=== PATIENT | female | born 1950 | race Caucasian/White ===

== ENCOUNTER → 2019-04-02 16:02 | Outpatient (BNVA) | payer MEDICARE, OTHER, SELFPAY | PROVIDERS: Family Provider Nurse Practitioner; PCP Nurse Practitioner; Visit Provider Nurse Practitioner | DX: J06.9 Acute upper respiratory infection, unspecified (principal); R50.9 Fever, unspecified | CPT/HCPCS: 87804 ==

== ENCOUNTER → 2019-07-09 08:51 | Outpatient (BNVA) | payer MEDICARE, OTHER, SELFPAY | PROVIDERS: Family Provider Nurse Practitioner; PCP Nurse Practitioner; Visit Provider Nurse Practitioner | DX: E55.9 Vitamin D deficiency, unspecified (principal); E78.5 Hyperlipidemia, unspecified; I10 Essential (primary) hypertension; F41.8 Other specified anxiety disorders | CPT/HCPCS: 80053; 80061; 81000; 82306; 82607; 83735; 84443; 85025 ==

== ENCOUNTER → 2020-01-18 08:03 | Outpatient (BNVA) | payer MEDICARE, OTHER, SELFPAY | PROVIDERS: Family Provider Nurse Practitioner; PCP Nurse Practitioner; Visit Provider Nurse Practitioner | DX: E78.2 Mixed hyperlipidemia (principal); E55.9 Vitamin D deficiency, unspecified; I10 Essential (primary) hypertension | CPT/HCPCS: 80053; 80061; 82306; 85025 ==

== ENCOUNTER → 2020-06-28 08:27 | Outpatient (BNVA) | payer MEDICARE, SELFPAY | PROVIDERS: Family Provider Nurse Practitioner; PCP Nurse Practitioner; Visit Provider Nurse Practitioner | DX: I10 Essential (primary) hypertension (principal); R91.1 Solitary pulmonary nodule; E78.2 Mixed hyperlipidemia | CPT/HCPCS: 80053; 80061; 84443; 85025 ==

== ENCOUNTER 2020-07-04 10:05 | Outpatient (CLI) | payer MEDICARE, SELFPAY ==
--- NOTE | 2020-07-04 10:30 | CT_ITS ---
WS: [id number] CT CHEST WITHOUT INTRAVENOUS CONTRAST HISTORY: R91.1 - Solitary pulmonary nodule TECHNIQUE: Contiguous 5 mm axial imaging performed on the thorax. Coronal and sagittal reformats are submitted. All CT scans at [facility] use at least one of these dose optimization techniq ues: automated exposure control; mA and/or kV adjustment per patient size (includes targeted exams wh ere dose is matched to clinical indication); or iterative reconstruction. CONTRAST: None DLP: 744.37 mGycm COMPARISON: 05/06/2019 and 04/20/2019 and 05/31/2018 Lungs and central airway: Hyperexpanded lungs. Stable 4 mm nodule at the RIGHT apex is slightly spicu lated. No increase in size over multiple years. No suspicious pulmonary nodules. No pneumonia. Pleura: Normal. No pleural effusion. Heart and pericardium: Normal size heart. No pericardial effusion. Heavy calcification along the mitr al annular valve plane. Moderate atherosclerosis [place] coronary arteries. Mediastinum and kaleb: Small mediastinal and hilar lymph nodes. Vessels: Normal size aortic and pulmonary artery. No coronary artery calcifications. Chest wall and lower neck: No soft tissue masses. Upper abdomen: Mild hepatic steatosis suspected within the liver. Small hiatal hernia. Osseous structures: No destructive process. CT/CT chest wo con [id number] IMPRESSION: 1. No new or suspicious nodules. Stable 4 mm nodule at the RIGHT apex over mul tiple years. The remaining opacifications have resolved. 2. Coronary artery calcifications and mitral annular calcification. 3. No adenopathy.
== END 2020-07-04 10:06 | disposition home or self-care (01) ==
PROVIDERS: PCP Nurse Practitioner; Visit Provider Nurse Practitioner
DX: R91.1 Solitary pulmonary nodule (principal); I25.10 Atherosclerotic heart disease of native coronary artery without angina pectoris
CPT/HCPCS: 71250

== ENCOUNTER → 2020-07-19 14:01 | Outpatient (BNVA) | payer MEDICARE, SELFPAY | PROVIDERS: PCP Nurse Practitioner; Visit Provider Podiatrist Foot & Ankle Surgery | DX: M20.11 Hallux valgus (acquired), right foot (principal); M77.31 Calcaneal spur, right foot | CPT/HCPCS: 73630 ==

== ENCOUNTER 2020-08-25 11:47 | Outpatient (CLI) | payer MEDICARE, SELFPAY ==
--- NOTE | 2020-08-25 11:55 | MM_ITS ---
WS: [id number] BILATERAL DIGITAL SCREENING MAMMOGRAPHY WITH CAD CLINICAL INFORMATION: SCREENING HISTORY: Screening mammogram. No current complaints. COMPARISON: June 18, 2018 TECHNIQUE: Bilateral CC and MLO views. FINDINGS: Scattered fibroglandular densities bilaterally. No suspicious focal mass, asymmetry, calcifications, or architectural distortion. No evidence of malignancy. A few punctate calcifications left breast sim ilar to previous. Secretory calcifications left breast. Vascular calcification. MM/[place] [id number] IMPRESSION: BI-RADS: 2-Benign FOLLOW UP: 1 Year Follow-up Recommend return to annual screening mammography.
== END 2020-08-25 11:48 | disposition home or self-care (01) ==
LOC: RADSHAW 11:54
PROVIDERS: PCP Nurse Practitioner; Visit Provider Nurse Practitioner
DX: Z12.31 Encounter for screening mammogram for malignant neoplasm of breast (principal)
CPT/HCPCS: 77067

== ENCOUNTER 2020-09-09 08:14 | Outpatient (CLI) | payer MEDICARE, SELFPAY ==
--- NOTE | 2020-09-09 08:30 | CT_ITS ---
WS: [id number] CT CALCIUM SCORE REASON FOR VISIT: I25.10 - Atherosclerotic heart disease of elem coronary...; Coronary artery dise ase risk assessment COMPARISON: None TECHNIQUE: Noncontrast coronary CT in combination with quantitative analysis performed on a separate workstation were used to determine CACS (Agatston score) TOTAL EXAM DOSE: 130.14 mGy.cm ECG GATING: Prospective SCAN RANGE: Pulmonary artery bifurcation to Inferior aspect of heart COMPLICATIONS: None FINDINGS: Technical Quality/Examination Quality: Good Limitaiton: None OVERALL SCORES Total calcium score: 688 Total volume score: 230 mm3 Percentile: 90 % ARTERY SCORES Left main coronary artery: 0 Left anterior descending artery: 624 Left circumflex artery: 64 Right coronary artery: 0 OTHER FINDINGS: Mediastinum: A few prominent pretracheal and peribronchial lymph nodes likely reactive largest measur ing 11 mm. Tiny right eccentric pericardial effusion. Thoracic aorta: Slightly ectatic ascending thoracic aorta measuring 3.2 CM. Lungs: Normal. Upper Abdomen: Small esophageal hiatal hernia. Adrenal glands are normal. MINIMAL: 1-10 MILD: 11-100 MODERATE: 101-400 SEVERE:>400 CT/CT heart w calcium score [id number] IMPRESSION: Total calcium score 688 consistent with severe coronary artery dise ase in the 90th percentile for age and gender GRADING OF CORONARY ARTERY DISEASE (BASED ON TOTAL CALCIUM SCORE) NO EVIDENCE OF CAD: 0 calcium score
== END 2020-09-09 08:15 | disposition home or self-care (01) ==
PROVIDERS: PCP Nurse Practitioner; Visit Provider Internal Medicine Cardiovascular Disease
DX: I25.10 Atherosclerotic heart disease of native coronary artery without angina pectoris (principal)
CPT/HCPCS: 75571

== ENCOUNTER → 2020-09-29 09:27 | Outpatient (BNVA) | payer MEDICARE, SELFPAY | PROVIDERS: PCP Nurse Practitioner; Visit Provider Nurse Practitioner | DX: M19.032 Primary osteoarthritis, left wrist (principal); M25.532 Pain in left wrist | CPT/HCPCS: 73110; 73130 ==

== ENCOUNTER 2020-11-10 06:00 | Outpatient (RCR) | payer MEDICARE, SELFPAY | END 2020-11-10 23:59 | disposition home or self-care (01) | LOC: AOT 06:00 | PROVIDERS: PCP Nurse Practitioner; Referring Provider Nurse Practitioner; Visit Provider Nurse Practitioner | DX: M25.532 Pain in left wrist (principal) | CPT/HCPCS: 97110; 97166 ==

== ENCOUNTER 2020-11-11 06:00 | Outpatient (RCR) | payer MEDICARE, SELFPAY | END 2020-12-11 23:59 | disposition home or self-care (01) | LOC: AOT 06:00 | PROVIDERS: PCP Nurse Practitioner; Referring Provider Nurse Practitioner; Visit Provider Nurse Practitioner | DX: M25.532 Pain in left wrist (principal) | CPT/HCPCS: 97110; 97140 ==

== ENCOUNTER 2020-12-22 07:24 | Outpatient (CLI) | payer MEDICARE, SELFPAY ==
[2020-12-22 07:30] VITALS: BMI 32.2
--- NOTE | 2020-12-22 07:40 | ECG_ITS ---
[facility] Test Date: 2020-12-22 Pat Name: Harika Singletary Department: Room: Gender: Female Service Station Cashier: : 1950 Requested By: Cori Helm Order Number: [id number] Evi MD: Cori Helm M.D. Interpretive Statements NAME OF STUDY: EXERCISE SESTAMIBI STRESS TEST INDICATION: Abnormal EKG, dyspnea on exertion Baseline blood pressure of 159/92 mm Hg, heart rate of 80 beats per minute and oxygen saturation of 95%. EKG showed normal sinus rhythm, normal axis with normal ST-Ts. The patient exercised for 4 minutes 9 seconds on a standard Shayan protocol. Patient attained a maximum heart rate of 151 beats per minute(100% of the maximum predicted heart rate) with a blood pressure at the peak exercise of 191/85 mm Hg and oxygen saturation of 90%. The EKG at the peak exercise revealed 1 to 1-1/[address] depression in inferolateral leads. Patient did not have any chest pain or any significant arrhythmis with the exercise During the recovery phase, there were no new changes. Blood pressure at the end of the recovery phase was 139/78 mm Hg with a heart rate of 99 beats per minute and oxygen saturation 98%. CONCLUSION: 1. Equivocal EKG response to treadmill exercise. 2. No exercise-induced chest pain or cardiac arrhythmia 3. Fair exercise tolerance, attained a maximum of 7 METs. Maximum VO2 of 24.5 mL/kg/min. 4. Baseline hypertension with normal response to exercise. 5. Perfusion scan will be documented separately. Electronically Signed On 12-25-2020 14:00:24 COMPUTER HARDWARE DEVELOPER by Cori Helm M.D. [id number]
--- NOTE | 2020-12-22 07:41 | NMCV_ITS ---
NM mati perf SPECT r/s* [id number] Harika Singletary Age: 70 Gender: F : 1950 Exam Date: 12/22/2020 08:56 Ordering Phys: Cori Helm MD ([email or web address]) Technologist: STEFANIE Locke Exam Location: [facility] Indications: ABNORMAL EKG, Dyspnea on exertion STRESS TEST Please see separate stress test [facility] for [facility] IMAGE PROTOCOL Rest/Stress 1 Exercise Day Radiopharmaceutical Dose (mCi) Administration Site Administered by Rest: Tc-99m 10.6 IV STEFANIE Locke Sestamibi Stress:Tc-99m 32.8 IV STEFANIE Vitale Sestamibi Rest: 22-Dec-2020 60 Discovery 630 Stress: 22-Dec-2020 15 Discovery 630 Radiopharmaceutical was injected at 93 % maximum heart rate. Images obtained in supine and prone position. SPECT RESULTS Technical Quality: Excellent Raw Data Analysis: Normal Image Corrections: No attenuation or motion correction applied Summed Stress Score: 0 Summed Rest Score: 0 Summed Difference Score: 0 PERFUSION FINDINGS SPECT images demonstrate homogeneous tracer distribution throughout the myocardium. FUNCTIONAL RESULTS (calculated via Gated SPECT) Stress Image LV EF (%): 89 Stress EDV (mL):53 TID: 1.04 Stress ESV (mL):6 FUNCTIONAL FINDINGS: The left ventricle is normal in size. Transient Ischemia Dilatation of 1. There is hyperdynamic left ventricular global systolic function. The left ventricular ejection fraction is hyperdynamic with a value of 89%. There is hyperdynamic left ventricular wall thickening with no regional wall motion abnormality. IMPRESSIONS 1. Myocardial perfusion imaging is normal. 2. There is hyperdynamic left ventricular global systolic function. 3. The left ventricular ejection fraction is hyperdynamic with a value of 89%. 4. No prior similar studies to compare. Cori Helm MD (Electronically Signed) Final Date: 22 December 2020 20:14 S
[2020-12-22 10:03] VITALS: BP 139/78; PULSE 99
== END 2020-12-22 07:25 | disposition home or self-care (01) ==
LOC: CDL 07:25
PROVIDERS: PCP Nurse Practitioner; Visit Provider Internal Medicine Cardiovascular Disease
DX: R94.31 Abnormal electrocardiogram [ECG] [EKG] (principal); R06.09 Other forms of dyspnea
CPT/HCPCS: 78452; 93017; A9500

== ENCOUNTER 2021-01-11 06:00 | Outpatient (RCR) | payer MEDICARE, SELFPAY | END 2021-02-10 23:59 | disposition home or self-care (01) | LOC: AOT 06:00 | PROVIDERS: PCP Nurse Practitioner; Referring Provider Nurse Practitioner; Visit Provider Nurse Practitioner | DX: M25.532 Pain in left wrist (principal) | CPT/HCPCS: 97110; 97140; 97168 ==

== ENCOUNTER → 2021-01-26 08:03 | Outpatient (BNVA) | payer MEDICARE, SELFPAY | PROVIDERS: PCP Nurse Practitioner; Visit Provider Nurse Practitioner | DX: I10 Essential (primary) hypertension (principal) | CPT/HCPCS: 80053; 80061; 84443; 85025 ==

== ENCOUNTER → 2021-09-06 08:04 | Outpatient (BNVA) | payer MEDICARE, SELFPAY | PROVIDERS: PCP Nurse Practitioner; Visit Provider Nurse Practitioner | DX: F41.8 Other specified anxiety disorders (principal); I10 Essential (primary) hypertension; E55.9 Vitamin D deficiency, unspecified | CPT/HCPCS: 80053; 80061; 82306; 82607; 84443 ==

== ENCOUNTER → 2021-12-28 10:11 | Outpatient (BNVA) | payer MEDICARE, SELFPAY | PROVIDERS: PCP Nurse Practitioner; Visit Provider Nurse Practitioner | DX: K12.2 Cellulitis and abscess of mouth (principal); I10 Essential (primary) hypertension | CPT/HCPCS: 80053; 85025 ==

== ENCOUNTER → 2022-03-01 08:34 | Outpatient (BNVA) | payer MEDICARE, SELFPAY | PROVIDERS: PCP Nurse Practitioner; Visit Provider Nurse Practitioner | DX: E78.2 Mixed hyperlipidemia (principal); I10 Essential (primary) hypertension | CPT/HCPCS: 80053; 80061; 81000; 84443 ==

== ENCOUNTER 2022-04-16 08:00 | Outpatient (CLI) | payer MEDICARE, SELFPAY ==
--- NOTE | 2022-04-16 08:09 | CT_ITS ---
WS: [id number] CT HEAD TECHNIQUE: Noncontrast CT of the head obtained from the skullbase to the vertex. CLINICAL INFORMATION: BRAIN ASSESSMENT COMPARISON: May 05, 2010 DLP: 1041.[address] scans at [facility] use at least one of these dose optimization techniques: automated e xposure control; mA and/or kV adjustment per patient size (includes targeted exams where dose is matc hed to clinical indication); or iterative reconstruction. FINDINGS: No evidence of intracranial hemorrhage or mass effect. Ventricular system and basal cisterns are velazquez nt. Mild parenchymal volume loss. No extra-axial fluid collections. No evidence of mass or mass effe ct. Normal loo-white differentiation. Small amount of fluid RIGHT maxillary sinus. Mastoid air cells well aerated. CT/CT head wo con* [id number] IMPRESSION: 1. No evidence of intracranial hemorrhage or mass effect. 2. Mild parenchymal volume loss. 3. Partially visualized RIGHT maxillary sinusitis. 4. No acute intracranial findings.
--- NOTE | 2022-04-16 08:30 | CT_ITS ---
WS: [id number] CT CHEST WITHOUT INTRAVENOUS CONTRAST HISTORY: R91.1 - Solitary pulmonary nodule TECHNIQUE: Contiguous 5 mm axial imaging performed on the thorax. Coronal and sagittal reformats are submitted. [facility] use at least one of these dose optimization techniques: automated exposure control; mA and/or kV adjustment per patient size (includes targeted exams where dose is matched to clinical indication); or iterative reconstruction. CONTRAST: None DLP: 553.47 mGy.cm COMPARISON: 07/04/2020 Lungs and central airway: No change in the 4 mm pulmonary nodule at the RIGHT apex over multiple prio r years. No new mass, nodule or pneumonia. Pleura: Normal. No pleural effusion. Heart and pericardium: Heavy mitral annular calcification. Heart size is normal. There is dense calci fication in the [place] coronary arteries. Mediastinum and kaleb: No mediastinum or hilar adenopathy. Vessels: Normal size aortic and pulmonary artery. No coronary artery calcifications. Chest wall and lower neck: No soft tissue masses. Upper abdomen: Hyperdense LEFT renal nodule measuring 9 mm. Nodule is hyperdense as compared to the s tudy from 2018. Probably representing hemorrhage or increased protein content within a cyst. 5 mm cys t in the central spleen. No adrenal mass. Osseous structures: No destructive process. CT/CT chest wo con [id number] IMPRESSION: 1. Long-term stability RIGHT apical 4 mm lung nodule. No additional follow-up necessary. 2. No new mass or nodule. 3. Extensive coronary artery calcifications.
== END 2022-04-16 08:01 | disposition home or self-care (01) ==
PROVIDERS: PCP Nurse Practitioner; Visit Provider Nurse Practitioner
DX: R51.9 Headache, unspecified (principal); R91.1 Solitary pulmonary nodule; J32.9 Chronic sinusitis, unspecified
CPT/HCPCS: 70450; 71250

== ENCOUNTER → 2022-04-20 10:57 | Outpatient (BNVA) | payer MEDICARE, SELFPAY | PROVIDERS: PCP Nurse Practitioner; Visit Provider Nurse Practitioner | DX: R07.9 Chest pain, unspecified (principal); I48.91 Unspecified atrial fibrillation | CPT/HCPCS: 87426 ==

== ENCOUNTER 2022-04-21 00:22 | Observation (INO) | payer MEDICARE, SELFPAY ==
[2022-04-21] VITALS (12 sets, daily range): BP systolic 114–160; BP diastolic 68–95; PULSE 60–87; RESP 16–25; TEMP 36.1–37.3; O2SAT 91–97; BMI 32.5
--- NOTE | 2022-04-21 00:25 | XRR_ITS ---
PROCEDURE INFORMATION: Exam: XR Chest Exam date and time: 04/21/2022 12:43 AM Age: 72 years old Clinical indication: Pain; Chest pressure; Additional info: Cp TECHNIQUE: Imaging protocol: Radiologic exam of the chest. Views: 1 view. COMPARISON: CT chest con [id number] 04/16/2022 8:27 AM FINDINGS: Lungs: Minimal bibasilar atelectasis left greater than right. No lobar consolidation. Pleural spaces: No significant costophrenic angle blunting. No pneumothorax. Heart/Mediastinum: Heart size is normal. Bones/joints: No acute osseous abnormality. XR/XR chest 1V portable [id number] IMPRESSION: Minimal bibasilar atelectasis left greater than right.
--- NOTE | 2022-04-21 00:32 | ED_ITS ---
HPI - Syncope General: Chief Complaint: Syncope Stated Complaint: NEAR SYNCOPE Time Seen by Provider: 04/21/22 00:25 Source: patient and EMS Mode of arrival: EMS Limitations: no limitations History of Present Illness: 72-year-old female who states she is feeling chest pain earlier today she had went into the clinic was seen was told she had A-fib I reviewed her EKG from the clinic and it was not A-fib she was started on metoprolol and she did take a dose of the metoprolol she was started on Eliquis as well but she never took any of the Eliquis she states tonight she had felt lightheaded and almost passed out. Now sitting she feels improved she denies any pain reviewing the rhythm strips of EMS she appears to have a second-degree Mobitz type II block. Associated symptoms: Reports chest pain; Deny abdominal pain, fever(s), headache(s) or nausea Review of Systems Const: Denies: fever(s), chills, body aches or change in appetite Eyes: Denies: blurry vision or eye discomfort ENMT: Denies: throat pain or dental pain Card: Reports: chest pain and pre-syncope Resp: Denies: dyspnea GI: Denies: abdominal pain, nausea, vomiting or diarrhea : Denies: dysuria Musc: Denies: neck pain or back pain Skin/Breast: Denies: rash Neuro: Denies: headache(s) Psych: Denies: depression Lito/Lymph: Denies: easy bruising All/Imm: Denies: urticaria PFSH ED PFSH: Medical History Body mass index (BMI) of 33.0-33.9 in adult DDD (degenerative disc disease) Essential (primary) hypertension History of food anaphylaxis Shell fish Mixed hyperlipidemia RADHA on CPAP Situational anxiety Vitamin D deficiency Surgical History History of cataract surgery History of hysterectomy Family History Other Cancer Hypertension Social History Smoking and tobacco status: former smoker Second hand smoke exposure: No Smoking risk assessment/counseling performed?: No Alcohol intake: current Alcohol intake frequency: holidays/special occasions only Alcohol type: wine Desire information about alcohol rehabilitation?: No Counseling given: No Desire information about substance/drug rehabilitation?: No Counseling given: No Adopted: No Caregiver/support person: No Lives independently: Yes Household members: none Housing: House Marital status: Single Current occupational status: retired Current gender identity: Female Physical Exam Const: COMMON NORMALS: patient oriented x3 HENMT: COMMON NORMALS: normocephalic and atraumatic HEAD & SCALP: normocephalic and atraumatic Eye: COMMON NORMALS: Equal, round and reactive pupils present and EOMs intact bilaterally PUPIL: Yes Equal, round and reactive pupils present Neck/C-Spine: COMMON NORMALS: full ROM and supple Chest: COMMONS NORMALS: normal inspection of the chest and normal palpation of entire chest wall Resp: COMMON NORMALS: normal respiratory effort, No retractions, No use of accessory muscles and clear to auscultation bilaterally AUSCULTATION: clear to auscultation bilaterally Cardio: COMMON NORMALS: regular rate, regular rhythm and No murmurs present (Cardio) RATE: regular rate RHYTHM: regular rhythm GI: COMMON NORMALS: Normal to inspection, nondistended, normoactive bowel sounds present, Soft to palpation, non-tender and no masses PALPATION: Yes Soft to palpation Extremity: COMMON NORMALS: normal to inspection and full ROM Neuro: COMMON NORMALS: patient oriented x3, moves all extremities and no focal motor deficits Psych: COMMON NORMALS: mental status grossly normal, Normal thought process present and cooperative THOUGHT PROCESS: Normal thought process present Skin: COMMON NORMALS: no rashes or lesions noted and no wounds GENERAL SKIN EXAM: no rashes or lesions noted Course Vital Signs: Vital signs: Vital Signs Temperature 97.8 F 04/21/22 00:28 Pulse Rate 85 04/21/22 01:28 Respiratory Rate 18 04/21/22 01:28 Blood Pressure 138/95 04/21/22 01:28 Pulse Oximetry 97 04/21/22 01:28 Oxygen Delivery Me thod 04/21/22 01:28 MDM - Syncope Medical Decision Making Patient presents here with a near syncopal event on her EKG here and appears to be a first-degree but when you want her rhythm strip and rhythm strips with EMS she is dropping beats frequently consistent with a second-degree type II block. I spoke to the hospitalist along with forestry faculty member and will admit at this time. Lab Data 04/21/22 00:50 04/21/22 00:50 Laboratory Results WBC 9.6 10^3/uL (4.0-10.0) 04/21/22 00:50 RBC 4.67 10^6/uL (4.1-5.3) 04/21/22 00:50 Hgb 13.4 g/dL (11.5-15.3) 04/21/22 00:50 Hct 41.6 % (37.0-47.0) 04/21/22 00:50 MCV 89.1 fl (81-99) 04/21/22 00:50 MCH 28.7 pg (28.0-34.0) 04/21/22 00:50 MCHC 32.2 g/dL (30.0-36.0) 04/21/22 00:50 RDW 13.3 % (12.1-15.1) 04/21/22 00:50 Plt Count 338 10^3/cmm (130-400) 04/21/22 00:50 MPV 10.2 fL (7.4-10.4) 04/21/22 00:50 Neut % (Auto) 73.8 % 04/21/22 00:50 Lymph % (Auto) 17.4 % 04/21/22 00:50 Glades % (Auto) 6.7 % 04/21/22 00:50 Eos % (Auto) 1.6 % 04/21/22 00:50 Baso % (Auto) 0.3 % 04/21/22 00:50 Neut # (Auto) 7.10 10^3/uL (1.8-7.7) 04/21/22 00:50 Lymph # (Auto) 1.7 10^3/uL (0.8-4.8) 04/21/22 00:50 Glades # (Auto) 0.6 10^3/uL (0.2-0.9) 04/21/22 00:50 Eos # (Auto) 0.2 10^3/uL (0.0-0.8) 04/21/22 00:50 Baso # (Auto) 0.0 10^3/uL (0.0-0.1) 04/21/22 00:50 Nucleated RBC % (auto) 0 % 04/21/22 00:50 Nucleated RBCs # 0.0 /100WBC 04/21/22 00:50 Sodium 141 mmol/L (136-145) 04/21/22 00:50 Potassium 3.9 mmol/L (3.5-5.1) 04/21/22 00:50 Chloride 102 mmol/L (98-107) 04/21/22 00:50 Carbon Dioxide 26 mmol/L (22-29) 04/21/22 00:50 Anion Gap 16.9 (5-19) 04/21/22 00:50 BUN 12 mg/dL (8-23) 04/21/22 00:50 Creatinine 0.6 mg/dL (0.5-0.9) 04/21/22 00:50 GFR Calculation Not Reportable 04/21/22 00:50 Glucose 128 mg/dL (65-115) H 04/21/22 00:50 Calculated Osmolality 293 mOsm/kg (285-295) 04/21/22 00:50 Calcium 9.5 mg/dL (8.5-10.5) 04/21/22 00:50 Total Bilirubin 0.4 mg/dL (0.15-1.2) 04/21/22 00:50 AST 14 U/L (0-32) 04/21/22 00:50 ALT 16 U/L (0-33) 04/21/22 00:50 Alkaline Phosphatase 67 U/L (35-105) 04/21/22 00:50 Troponin T Baseline 7 ng/L (0-10) 04/21/22 00:50 Total Protein 6.8 g/dL (6.6-8.7) 04/21/22 00:50 Albumin 4.1 g/dL (3.5-5.2) 04/21/22 00:50 Globulin 2.7 g/dL (1.3-4.6) 04/21/22 00:50 Discharge Plan Discharge Patient Disposition: Admitted As Inpatient Clinical Impression: Syncope Condition: Stable Prescriptions: No Action (DME) CPAP auto titration See Rx Instructions .ROUTE .MEDSUPPLY Qty: 1 0RF Rx Instructions: auto titration up to 14 pressure For 99 months cholecalciferol (vitamin D3) PO ascorbate calcium (vitamin C) PO Endoca CBD topical diazepam 2 mg tablet 2 mg PO .HS PRN (Reason: anxiety) Qty: 30 0RF epinephrine [EpiPen 2-Kyrie] 0.3 mg/0.3 mL auto-injector 0.3 mg IM ONCE Qty: 2 2RF Rx Instructions: as a single dose rosuvastatin 10 mg tablet 10 mg PO DAILY Qty: 30 5RF hydrochlorothiazide 25 mg tablet 25 mg PO DAILY Qty: 30 5RF metoprolol succinate [Toprol XL] 25 mg tablet extended release 24 hr 25 mg PO DAILY Qty: 30 1RF Xarelto 15 mg tablet 15 mg PO DAILY Qty: 30 0RF Rx Instructions: must administer with evening meal ondansetron HCl 4 mg tablet 4 mg PO Q8H PRN (Reason: nausea and vomiting) Qty: 7 0RF Referrals: Perfecto Silva FNP-C [Primary Care Provider] - Coding Level of Care Code ED Office Administration Instructor for Teri Wright
--- NOTE | 2022-04-21 00:38 | ECG_ITS ---
[facility] Test Date: 2022-04-21 Pat Name: Harika Singletary Department: Room: Gender: Female Lab Asst: : 1950 Requested By: Nahid Naranjo Order Number: [id number] Evi MD: Gladys Carranza M.D. Measurements Intervals Sabin Rate: 89 P: 49 WV: 269 QRS: 44 QRSD: 81 T: 52 QT: 366 QTc: 447 Interpretive Statements SINUS RHYTHM WITH FIRST DEGREE AV BLOCK LOW QRS VOLTAGE IN PRECORDIAL LEADS [QRS DEFLECTION < 1.0 mV IN CHEST LEADS] No previous ECG available for comparison Electronically Signed On 04-22-2022 19:36:06 CDT by Gladys Carranza M.D. [id number]
[2022-04-21 01:01] LABS: Basophils % 0.3 %; Eosinophils # 0.2 10^3/uL (0.0-0.8); Eosinophils % 1.6 %; Hematocrit 41.6 % (37.0-47.0); Hemoglobin 13.4 g/dL (11.5-15.3); Lymphocytes # 1.7 10^3/uL (0.8-4.8); Lymphocytes % 17.4 %; Mean Corpuscular HGB Conc 32.2 g/dL (30.0-36.0); Mean Corpuscular Hemoglobin 28.7 pg (28.0-34.0); Mean Corpuscular Volume 89.1 fl (81-99); Mean Platelet Volume 10.2 fL (7.4-10.4); Monocytes # 0.6 10^3/uL (0.2-0.9); Monocytes % 6.7 %; Neutrophils % 73.8 %; Nucleated Red Blood Cells % 0 %; Platelet Count 338 10^3/cmm (130-400); Red Blood Count 4.67 10^6/uL (4.1-5.3); Red Cell Distribution Width 13.3 % (12.1-15.1); White Blood Count 9.6 10^3/uL (4.0-10.0)
[2022-04-21 01:29] LABS: Troponin(5th) Baseline 7 ng/L (0-10)
[2022-04-21 01:31] LABS: Alanine Aminotransferase 16 U/L (0-33); Albumin Level 4.1 g/dL (3.5-5.2); Alkaline Phosphatase 67 U/L (35-105); Anion Gap 16.9 (5-19); Aspartate Amino Transferase 14 U/L (0-32); Blood Urea Nitrogen 12 mg/dL (8-23); Calcium 9.5 mg/dL (8.5-10.5); Carbon Dioxide 26 mmol/L (22-29); Chloride 102 mmol/L (98-107); Globulin 2.7 g/dL (1.3-4.6); Glucose 128 mg/dL (65-115); Osmolality Calculated 293 mOsm/kg (285-295); Potassium 3.9 mmol/L (3.5-5.1); Sodium 141 mmol/L (136-145); Total Bilirubin 0.4 mg/dL (0.15-1.2); Total Protein 6.8 g/dL (6.6-8.7)
--- NOTE | 2022-04-21 02:25 | ECG_ITS ---
[facility] Test Date: 2022-04-21 Pat Name: Harika Singletary Department: Room: 111 Gender: Female Systems Consultant: : 1950 Requested By: Nahid Naranjo Order Number: [id number] Evi MD: Gladys Carranza M.D. Measurements Intervals [place] Rate: 73 P: 25 UT: 256 QRS: 45 QRSD: 85 T: 31 QT: 415 QTc: 459 Interpretive Statements Sinus rhythm with a first-degree AV block and blocked PACs LOW QRS VOLTAGE IN PRECORDIAL LEADS [QRS DEFLECTION < 1.0 mV IN CHEST LEADS] MINIMAL ST DEPRESSION [0.025+ mV ST DEPRESSION] Compared to ECG 04/21/2022 00:38:27 ST (T wave) deviation now present Electronically Signed On 04-22-2022 23:09:09 CDT by Gladys Carranza M.D. [id number]
--- NOTE | 2022-04-21 05:23 | P.HP_ITS ---
Providers/Chief Complaint Admitting Physician: Piedad Cho MD Primary Care Provider: Perfecto Silva, PACKER OPERATOR AUTOMATIC-C Chief Complaint: NEAR SYNCOPE History of Present Illness Harika Singletary is a 72 year old female with PMH HTN, HLD who visited with her PCP yesterday for chest pain. She was diagnosed with A fib and started on metoprolol and xarelto. She took metoprolol but not xarelto due to cost. She went to bed at 9: 30 pm but then woke up shortly afterwards feeling dizzy, weak and disoriented as if she would pass out. EMS was called, 2nd degree AV block was noted on rhythm strip and patient brought to ER. Here initial rhythm was with sinus arrhythmia however intermittent HB noted on telemetry. HEr chest apin has since resolved. No past h/o CAD. Stress test 2020 was WNL Review of Systems General: Reports: 10 or more systems reviewed and unremarkable except in HPI and below Const: Denies: fever(s), chills or body aches Eyes: Denies: change in vision, blurry vision or photophobia ENMT: Reports: hoarseness; Denies: throat pain, enlarged tonsils, odynophagia or nasal congestion Card: Denies: chest pain, palpitations, irregular heart rhythm, edema, swelling of feet/ankles, lightheadedness, pre-syncope, dyspnea on exertion or orthopnea Resp: Denies: dyspnea, productive cough, non-productive cough, wheezing, stridor, pain on inspiration, change in phlegm color, hemoptysis or chest congestion GI: Denies: abdominal pain, nausea, vomiting, hematemesis, coffee ground emesis, dysphagia, heartburn, diarrhea, constipation, GI cramping, change in stool character, hematochezia or melena : Denies: flank pain, difficulty voiding, dysuria, urinary frequency, urinary urgency, urinary hesitancy or hematuria Musc: Denies: neck pain, back pain, extremity pain, joint swelling, joint warmth or deformity Neuro: Denies: headache(s), numbness in extremities, weakness in extremities, sensory changes, difficulty walking, frequent falls, dizziness, vertigo, behavioral changes, Slurred speech present or seizure-like activity Psych: Denies: anxiety, depression, suicidal ideation or homicidal ideation Endo: Denies: polyuria, polydipsia, tired all the time, cold intolerance or hot flashes Lito/Lymph: Denies: easy bruising or easy bleeding Medications/Allergies Home Medications Medication Instructions Recorded Confirmed Last Taken Type CPAP auto titration #1 ea 07/26/20 04/20/22 Unknown Rx ascorbate calcium (vitamin C) PO 08/25/20 04/20/22 Unknown History cholecalciferol (vitamin D3) PO 08/25/20 04/20/22 Unknown History Endoca CBD topical 02/02/21 04/20/22 Unknown History diazepam 2 mg tablet 2 mg PO .HS PRN anxiety #30 tabs 09/01/21 04/20/22 Unknown Rx epinephrine 0.3 mg/0.3 mL 0.3 mg (0.3 mL) IM ONCE #2 ea 09/01/21 04/20/22 Unknown Rx injection, auto-injector (EpiPen 2-Kyrie) hydrochlorothiazide 25 mg tablet 25 mg PO DAILY #30 tabs 03/01/22 04/20/22 Unknown Rx rosuvastatin 10 mg tablet 10 mg PO DAILY #30 tabs 03/01/22 04/20/22 Unknown Rx ondansetron HCl 4 mg tablet 4 mg PO Q8H PRN nausea and 03/20/22 04/20/22 Unknown Rx vomiting #7 tabs metoprolol succinate 25 mg 25 mg PO DAILY #30 tabs 04/20/22 04/20/22 Unknown Rx tablet,extended release 24 hr (Toprol XL) rivaroxaban 15 mg tablet (Xarelto) 15 mg PO DAILY #30 tabs 04/20/22 04/20/22 Unknown Rx Allergies Allergy/AdvReac Type Severity Reaction Status Date / Time shellfish derived Allergy Severe Stop Verified 04/20/22 11:08 Breathing Sulfa (Sulfonamide Allergy Severe Rash Verified 04/20/22 11:08 Antibiotics) swelling cephalexin [From Keflex] Allergy Intermediate Rash Verified 04/20/22 11:08 ciprofloxacin [From Cipro] Allergy Intermediate Rash Verified 04/20/22 11:08 PFSH Acute PFSH: Medical History Body mass index (BMI) of 33.0-33.9 in adult DDD (degenerative disc disease) Essential (primary) hypertension History of food anaphylaxis Shell fish Mixed hyperlipidemia RADHA on CPAP Situational anxiety Vitamin D deficiency Surgical History History of cataract surgery History of hysterectomy Family History Other Cancer Hypertension Social History Smoking and tobacco status: former smoker Second hand smoke exposure: No Smoking risk assessment/counseling performed?: No Alcohol intake: current Alcohol intake frequency: holidays/special occasions only Alcohol type: wine Desire information about alcohol rehabilitation?: No Counseling given: No Desire information about substance/drug rehabilitation?: No Counseling given: No Adopted: No Caregiver/support person: No Lives independently: Yes Household members: none Housing: House Marital status: Single Current occupational status: retired Current gender identity: Female Vitals/I&O/Wt Last Vital Signs Temp 98.5 F 04/21/22 04:50 Pulse 79 04/21/22 04:50 Resp 25 H 04/21/22 04:50 BP 123/89 04/21/22 04:50 Pulse Ox 93 04/21/22 04:50 O2 Del Method 04/21/22 04:50 FiO2 21 04/21/22 04:30 Weight last 48 hrs Weight 86.183 kg Physical Exam Narrative: General: No acute distress, AO x3 HEENT: PERRLA, pupils bilaterally equal and reactive, pallors not present Chest: Normal vesicular breath sounds, no added sounds, equal good air entry bilaterally CVS: S1-S2 regular, no murmurs, no tachycardia, no gallops, no rubs Abdomen: Soft, nontender, no organomegaly, bowel sounds present Neuro: No focal deficits, no facial deformity, AO x3, power 5/5 in all limbs Data 04/21/22 00:50 04/21/22 00:50 A&P Assessment and plan (1) Near syncope: (2) Heart block: Plan Admit to CSU Telemetry monitoring electrolytes within range check troponin series and EKG series 12 lead EKG currently with sinus rhythm with first degree AV block however EMS lead with 2nd degree AV block, will monitor on tele No current chest pain or pre syncopal symptoms hold metoprolol cardioloy consulted from ER Attestations Medical Necessity Statement*: anticipate less than [facility] Coding Level of Care Code Acute Code for Chg Fwd Diagnoses Near syncope R55 Heart block I45.9
[2022-04-21 06:11] LABS: NT Pro B Type Natriuretic Pept 380 pg/mL (0-125)
--- NOTE | 2022-04-21 06:30 | ECG_ITS ---
[facility] Test Date: 2022-04-21 Pat Name: Harika Singletary Department: Room: 111 Gender: Female Supervisor Bindery: : 1950 Requested By: Nahid Naranjo Order Number: [id number] Evi MD: Gladys Carranza M.D. Measurements Intervals [place] Rate: 63 P: 54 TN: 263 QRS: 51 QRSD: 87 T: 58 QT: 430 QTc: 442 Interpretive Statements SINUS RHYTHM WITH FIRST DEGREE AV BLOCK WITH OCCASIONAL SUPRAVENTRICULAR PREMATURE COMPLEXES/blocked PACs LOW QRS VOLTAGE IN PRECORDIAL LEADS [QRS DEFLECTION < 1.0 mV IN CHEST LEADS] SEPTAL MYOCARDIAL INFARCTION , PROBABLY OLD [40+ ms Q WAVE IN V1/V2] Compared to ECG 04/21/2022 02:58:47 Myocardial infarct finding now present Sinus arrhythmia no longer present ST (T wave) deviation no longer present Electronically Signed On 04-22-2022 23:15:00 CDT by Gladys Carranza M.D. [email or web address]
[2022-04-21] MEDS: enoxaparin 40 mg/0.4 mL Syringe SUBCUT (06:36)
[2022-04-21 06:57] LABS: Troponin 5 6HR 8.61 ng/L (0-10)
[2022-04-21 07:28] LABS: Troponin 5 6HR Delta 1.61 ng/L (0-12)
--- NOTE | 2022-04-21 08:27 | P.CONIM_ITS ---
Providers/Reason For Consult Consulting Physician/Specialty*: ARLETTE Carranza MD/cardiology Reason for Consult*: Patient with a new onset of atrial fibrillation/symptomatic heart blocks Requesting Physician: Dr. Eli Attending Physician: Francisco Edmond MD Primary Care Provider: Perfecto Silva, SOURCE INSPECTOR-C History of Present Illness History of Present Illness Harika Singletary is a 72 year old female is admitted to the hospital with complaints of a new syncopal episode. She was found to be in second-degree heart block by the EMS. She was recently diagnosed with atrial fibrillation. Cardiology consult is requested for further cardiac evaluation recommendations. This patient apparently has been in her baseline state of health up until 10 days yesterday morning when she started having a dull aching type of pain in the lower substernal region. It lasted for several minutes. For this reason, she was evaluated in the [facility]. An EKG in the clinic revealed atrial fibrillation. Details of this is not available at this time. She was started on metoprolol succinate 25 mg daily and Xarelto. She took a half of the metoprolol succinate around 5 PM. She went to bed around 8:00 in the night. Around 10:30 PM she woke up with dizziness/uneasy feeling. She felt like she is in a different world. She was confused. Apparently she called her son around this time. The son called the 911. She was brought to the hospital emergency room for further evaluation management. Since hospital admission, she seems to be doing okay. The EKG in the hospital revealed a sinus rhythm with a first- degree AV block, blocked PACs and the occasional junctional escape beats. Patient has no previous history for any coronary artery disease, myocardial infarction, congestive heart failure or cardiac arrhythmia. Few years ago, she was found to have? Coronary calcification by CT of the chest. Apparently the CT scan was done to follow-up on a lung lesion. Subsequently she was seen by Dr. Hel[facility] and had a stress test. This was essentially unremarkable. She did not have any specific symptoms at that time. She is known to have dyslipidemia and essential benign hypertension. She has no significant family history for premature atherosclerotic heart diseas, cardiac arrhythmia or pacemaker. She smokes occasionally and also drinks socially. Review of Systems Narrative: CONSTITUTIONAL: No fever or chills. EYES: No blurring of vision or other visual disturbances lately. ENT: No hoarseness of voice, auditory disturbances or sore throat. CARDIOVASCULAR: As mentioned above. RESPIRATORY: No significant cough. GASTROINTESTINAL: No hematemesis or melena. GENITOURINARY: No dysuria or hematuria. INTEGUMENTARY: No skin rashes or history of skin cancer. NEURO: No transient ischemic attacks or amaurosis. PSYCHIATRIC: No history of psychosis or major depression. HEMATOLOGIC: No bleeding disorders or significant anemia. ENDOCRINE: No history of polyuria or polydipsia. MUSCULOSKELETAL: No recent joint pain or swelling. ALLERGY/IMMUNOLOGY: As mentioned above. Medications/Allergies Home Medications Medication Instructions Recorded Confirmed Last Taken Type CPAP auto titration #1 ea 07/26/20 04/20/22 Unknown Rx ascorbate calcium (vitamin C) PO 08/25/20 04/20/22 Unknown History cholecalciferol (vitamin D3) PO 08/25/20 04/20/22 Unknown History Endoca CBD topical 02/02/21 04/20/22 Unknown History diazepam 2 mg tablet 2 mg PO .HS PRN anxiety #30 tabs 09/01/21 04/20/22 Unknown Rx epinephrine 0.3 mg/0.3 mL 0.3 mg (0.3 mL) IM ONCE #2 ea 09/01/21 04/20/22 Unknown Rx injection, auto-injector (EpiPen 2-Kyrie) hydrochlorothiazide 25 mg tablet 25 mg PO DAILY #30 tabs 03/01/22 04/20/22 Unknown Rx rosuvastatin 10 mg tablet 10 mg PO DAILY #30 tabs 03/01/22 04/20/22 Unknown Rx ondansetron HCl 4 mg tablet 4 mg PO Q8H PRN nausea and 03/20/22 04/20/22 Unknown Rx vomiting #7 tabs metoprolol succinate 25 mg 25 mg PO DAILY #30 tabs 04/20/22 04/20/22 Unknown Rx tablet,extended release 24 hr (Toprol XL) rivaroxaban 15 mg tablet (Xarelto) 15 mg PO DAILY #30 tabs 04/20/22 04/20/22 U nknown Rx Allergies Allergy/AdvReac Type Severity Reaction Status Date / Time shellfish derived Allergy Severe Stop Verified 04/20/22 11:08 Breathing Sulfa (Sulfonamide Allergy Severe Rash Verified 04/20/22 11:08 Antibiotics) swelling cephalexin [From Keflex] Allergy Intermediate Rash Verified 04/20/22 11:08 ciprofloxacin [From Cipro] Allergy Intermediate Rash Verified 04/20/22 11:08 Current Medications Generic Name Dose Route Start Last Admin Trade Name Nancy PRN Reason Stop Dose Admin Enoxaparin Sodium 40 mg 04/21/22 05:30 04/21/22 06:36 Enoxaparin 40 Mg/0.4 Ml Syringe SUBCUT 40 mg Q24H PIYUSH Administration PFSH Acute PFSH: Medical History Body mass index (BMI) of 33.0-33.9 in adult DDD (degenerative disc disease) Essential (primary) hypertension History of food anaphylaxis Shell fish Mixed hyperlipidemia RADHA on CPAP Situational anxiety Vitamin D deficiency Surgical History History of cataract surgery History of hysterectomy Family History Other Cancer Hypertension Social History Smoking and tobacco status: former smoker Second hand smoke exposure: No Smoking risk assessment/counseling performed?: No Alcohol intake: current Alcohol intake frequency: holidays/special occasions only Alcohol type: wine Desire information about alcohol rehabilitation?: No Counseling given: No Desire information about substance/drug rehabilitation?: No Counseling given: No Adopted: No Caregiver/support person: No Lives independently: Yes Household members: none Housing: House Marital status: Single Current occupational status: retired Current gender identity: Female Vitals/I&O/Wt Last Vital Signs Temp 98 F 04/21/22 08:00 Pulse 67 04/21/22 08:00 Resp 18 04/21/22 08:00 BP 114/74 04/21/22 08:00 Pulse Ox 93 04/21/22 08:00 O2 Del Method 04/21/22 08:00 FiO2 21 04/21/22 04:30 04/20/22 04/21/22 04/21/22 22:59 06:59 14:59 Intake Total 0 / 0 Balance 0 / 0 Weight last 48 hrs Weight 190 lb Physical Exam Narrative: GENERAL: The patient is alert and oriented times three. Not in any acute distress. Overweight HEENT: No significant pallor, icterus or lymphadenopathy.Oral cavity: There are no mucous membrane lesions. NECK: Trachea appears to be central. No masses noted. No JVD or thyromegaly appreciated. RESPIRATORY: Chest is symmetrical. No intercostals muscle retraction or any accessory muscle activation. There is no chest wall tenderness. Breath sounds are heard bilaterally. No rales or rhonchi heard. No evidence of any consolidation. BREASTS: Deferred. HEART: The heart sounds are normal. No S3 or S4. No significant murmurs. No pericardial rub ABDOMEN: No vessel pulsations or distention. No tenderness. No organomegaly appreciated. Bowel sounds are normally heard. : Deferred. RECTAL: Deferred. LYMPHATIC: No lymphadenopathy noted in the neck. EXTREMITIES: No edema or cyanosis. No clubbing. MUSCULOSKELETAL: No acute joint deformities or swelling SKIN: There are no significant rashes or ecchymosis NEUROPSYCHIATRIC: The patient is alert and oriented x3. Appears to be in a good mood. No tremors or rigidity noted. Data 04/21/22 00:50 04/21/22 00:50 Other Labs: Laboratory Last Values WBC 9.6 10^3/uL (4.0-10.0) 04/21/22 00:50 RBC 4.67 10^6/uL (4.1-5.3) 04/21/22 00:50 Hgb 13.4 g/dL (11.5-15.3) 04/21/22 00:50 Hct 41.6 % (37.0-47.0) 04/21/22 00:50 MCV 89.1 fl (81-99) 04/21/22 00:50 MCH 28.7 pg (28.0-34.0) 04/21/22 00:50 MCHC 32.2 g/dL (30.0-36.0) 04/21/22 00:50 RDW 13.3 % (12.1-15.1) 04/21/22 00:50 Plt Count 338 10^3/cmm (130-400) 04/21/22 00:50 MPV 10.2 fL (7.4-10.4) 04/21/22 00:50 Neut % (Auto) 73.8 % 04/21/22 00:50 Lymph % (Auto) 17.4 % 04/21/22 00:50 [place]orne % (Auto) 6.7 % 04/21/22 00:50 Eos % (Auto) 1.6 % 04/21/22 00:50 Baso % (Auto) 0.3 % 04/21/22 00:50 Neut # (Auto) 7.10 10^3/uL (1.8-7.7) 04/21/22 00:50 Lymph # (Auto) 1.7 10^3/uL (0.8-4.8) 04/21/22 00:50 [place] # (Auto) 0.6 10^3/uL (0.2-0.9) 04/21/22 00:50 Eos # (Auto) 0.2 10^3/uL (0.0-0.8) 04/21/22 00:50 Baso # (Auto) 0.0 10^3/uL (0.0-0.1) 04/21/22 00:50 Nucleated RBC % (auto) 0 % 04/21/22 00:50 Nucleated RBCs # 0.0 /100WBC 04/21/22 00:50 Sodium 141 mmol/L (136-145) 04/21/22 00:50 Potassium 3.9 mmol/L (3.5-5.1) 04/21/22 00:50 Chloride 102 mmol/L (98-107) 04/21/22 00:50 Carbon Dioxide 26 mmol/L (22-29) 04/21/22 00:50 Anion Gap 16.9 (5-19) 04/21/22 00:50 BUN 12 mg/dL (8-23) 04/21/22 00:50 Creatinine 0.6 mg/dL (0.5-0.9) 04/21/22 00:50 GFR Calculation Not Reportable 04/21/22 00:50 Glucose 128 mg/dL (65-115) H 04/21/22 00:50 Calculated Osmolality 293 mOsm/kg (285-295) 04/21/22 00:50 Calcium 9.5 mg/dL (8.5-10.5) 04/21/22 00:50 Total Bilirubin 0.4 mg/dL (0.15-1.2) 04/21/22 00:50 AST 14 U/L (0-32) 04/21/22 00:50 ALT 16 U/L (0-33) 04/21/22 00:50 Alkaline Phosphatase 67 U/L (35-105) 04/21/22 00:50 Troponin T Baseline 7 ng/L (0-10) 04/21/22 00:50 Troponin T Hi Sens 6Hr 8.61 ng/L (0-10) 04/21/22 06:24 Troponin T Hi Sens 6Hr Delta 1.61 ng/L (0-12) 04/21/22 06:24 NT-Pro-B Natriuret Pep 380 pg/mL (0-125) H 04/21/22 05:33 Total Protein 6.8 g/dL (6.6-8.7) 04/21/22 00:50 Albumin 4.1 g/dL (3.5-5.2) 04/21/22 00:50 Globulin 2.7 g/dL (1.3-4.6) 04/21/22 00:50 A&P Assessment and plan (1) Near syncope: The etiology is not clear. The rhythm strip that is obtained from the ambulance shows that the patient is in first-degree heart block with frequent blocked PACs. Possibility of her having high degree AV block cannot be excluded. This needs to be closely monitored. (2) New onset atrial fibrillation: The EKG with atrial fibrillation also is not available. If the patient has intermittent atrial fibrillation, she may need an antiarrhythmic drug. I will try to get the EKG from the [facility]. After reviewing the EKG, further recommendations will be made. (3) RADHA on CPAP: Patient may be continued on the treatment. (4) Heart block: Currently the patient has first-degree AV block with frequent blocked PACs. (5) Mixed hyperlipidemia: May continue on the current management. (6) Coronary artery calcification of kiana artery: Continue the risk factor modification. (7) Essential (primary) hypertension: Currently she is normotensive. Continue on the current management. (8) Lung nodule < 6cm on CT: Follow-up evaluation as per the primary care. Plan The patient may be closely monitored on the telemetry. An echocardiogram would be helpful to evaluate the LV function and rule out any other pathology. Also will try to get the EKG from the [facility]. After reviewing the above, further recommendations will be made. Thank you for the opportunity to evaluate this patient make these recommendations Coding Level of Care Code 43720 Diagnoses Near syncope R55 New onset atrial fibrillation I48.91 RADHA on CPAP G47.33; Z99.89 Heart block I45.9 Mixed hyperlipidemia E78.2 Coronary artery calcification of kiana artery I25.10; I25.84 Essential (primary) hypertension I10 Lung nodule < 6cm on CT R91.1
[2022-04-21] MEDS: hydroCHLOROthiazide 25 mg Tablet PO (08:52)
--- NOTE | 2022-04-21 09:59 | USCV_ITS ---
Harika Singletary Age: 72 Gender: F : 1950 Exam Date: 04/21/2022 13:16 Ordering Phys: Gladys Carranza MD ([email or web address]) Technologist: ROSEANN Exam Location: [facility] [place] Indication: afib,heart block BP: / HR: 79 Rhythm: Sinus Technical Quality: Adequate MEASUREMENTS (Male / Female) Normal Values 2D ECHO LV Diastolic Diameter PLAX 5.3 cm 4.2 - 5.9 / 3.9 - 5.3 cm LV Systolic Diameter PLAX 3.9 cm IVS Diastolic Thickness 0.9 cm 0.6 - 1.0 / 0.6 - 0.9 cm IVS Systolic Thickness 1.2 cm LVPW Diastolic Thickness 0.8 cm 0.6 - 1.0 / 0.6 - 0.9 cm LVPW Systolic Thickness 1.2 cm LVOT Diameter 2.0 cm LV Ejection Fraction 2D Teich 51.1 % LV Ejection Fraction MOD 2C 58.2 % LV Ejection Fraction 2C AL 57.7 % LA Diameter 4.4 cm IVC Diameter 1.1 cm M-MODE Aortic Annulus Diameter 2.7 cm LA Ao Ratio MM 1.6 MV E Point Septal Separation 0.1 cm DOPPLER AV Peak Velocity 166.0 cm/s LVOT Peak Velocity 182.0 cm/s AV Area Cont Eq vti 3.4 cm squared AV Area Cont Eq pk 3.5 cm squared MV Area PHT 2.4 cm squared Mitral E to A Ratio 0.8 MV E' Velocity 74.5 cm/s Mitral E to MV E' Ratio 18.9 Mitral E to LV E' Lateral Ratio 19.7 Mitral E to LV E' Septal Ratio 18.4 TV Peak E Velocity 49.0 cm/s PV Peak Velocity 113.0 cm/s FINDINGS Left Ventricle Moderate left ventricular hypertrophy. No regional wall motion abnormalities. Normal left ventricular size and systolic function, EF 64 %. Grade I/IV diastolic dysfunction (abnormal relaxation filling pattern), normal to mildly elevated filling pressures. Right Ventricle The right ventricle is normal in size and function. Right Atrium The right atrium is normal in size. Left Atrium Mildly increased left atrial size. Atrial septal aneurysm measuring 2.3 x 1.8 cm Mitral Valve Thickened mitral valve. Moderate mitral annular calcification. Trace mitral valve regurgitation. Aortic Valve Thickened aortic valve. Tricuspid Valve No gross abnormalities noted Pulmonic Valve Trace pulmonary valve regurgitation. Pericardium Normal pericardium without effusion. Aorta Normal aortic annulus size. IVC Normal inferior vena cava. CONCLUSIONS Moderate left ventricular hypertrophy. No regional wall motion abnormalities. Normal left ventricular size and systolic function, EF 64 %. Grade I/IV diastolic dysfunction (abnormal relaxation filling pattern), normal to mildly elevated filling pressures. Mildly increased left atrial size. Atrial septal aneurysm measuring 2.3 x 1.8 cm. Thickened aortic valve. Trace pulmonary valve regurgitation. There is no pericardial effusion. There are no intracardiac masses. No similar previous studies are available for comparison Dr Gladys Carranza MD [facility] (Electronically Signed) Final Date: 21 April 2022 15:09 S
--- NOTE | 2022-04-21 14:14 | P.MISC_ITS ---
Miscellaneous Note Purpose of Documentation: Cross coverage note Note: Admitted humanities and languages professor. H&P and labs appreciated. On examination patient sitting up comfortably in bed. Family at bedside. Heart rate running in high 50s to low 60s with variable blocks versus first-degree heart block with blocked PACs. Patient states she is feeling a lot better. Patient is AOx3. Denies any difficulty breathing, chest pain, nausea and vomiting. Plan: Appreciate TSH. Check echocardiogram. Check magnesium Hold off on beta-liz. Continue to monitor telemetry. Appreciate cardiology recommendations. Possible plan to discharge in next 24 hours if patient remains hemodynamically stable without any symptoms of possible arrhythmia with heart block. Plan to discharge with event monitor. Care discussed in detail with patient and patient's daughter at bedside. All the questions were answered.
[2022-04-21 15:08] LABS: Iron 25 ug/dL (37-145); Percent Saturation 7.7 % (20-50); Thyroid Stimulating Hormone 1.28 uIU/mL (0.27-4.20); Total Iron Binding Capacity 323 mcg/dl; Unsaturated Iron Binding 298 ug/dL (112-347); Vitamin B12 366 pg/mL (232-1245)
[2022-04-21 16:05] LABS: Add Urine Microscopic? NO; Charge for UA Resulting for Rev
[2022-04-21 16:09] LABS: Bilirubin Urine Neg (Negative); Blood Urine Neg (Negative); Glucose Urine UA Norm (Normal); Ketones Urine Negative (Negative); Leukocyte Esterase Urine Negative (Negative); Nitrate Urine Negative (Negative); Protein Urine Neg (Negative); Specific Gravity, Urine 1.015 (1.005-1.030); Urine Appearance Clear (CLEAR); Urine Color Yellow (Yellow); Urobilinogen Urine 4 mg/dL (Negative); pH Urine 7 (5-7)
[2022-04-22] VITALS (7 sets, daily range): BP systolic 109–133; BP diastolic 64–76; PULSE 67–82; RESP 16–20; TEMP 36.6–37.1; O2SAT 90–95
[2022-04-22] MEDS: enoxaparin 40 mg/0.4 mL Syringe SUBCUT (04:40)
[2022-04-22 05:16] LABS: Basophils % 0.4 %; Eosinophils # 0.2 10^3/uL (0.0-0.8); Eosinophils % 3.3 %; Hematocrit 40.8 % (37.0-47.0); Hemoglobin 12.8 g/dL (11.5-15.3); Lymphocytes # 2.5 10^3/uL (0.8-4.8); Lymphocytes % 35.1 %; Mean Corpuscular HGB Conc 31.4 g/dL (30.0-36.0); Mean Corpuscular Hemoglobin 28.6 pg (28.0-34.0); Mean Corpuscular Volume 91.3 fl (81-99); Mean Platelet Volume 10.1 fL (7.4-10.4); Monocytes # 0.5 10^3/uL (0.2-0.9); Monocytes % 6.9 %; Neutrophils # 3.78 10^3/uL (1.8-7.7); Neutrophils % 54.2 %; Nucleated Red Blood Cells % 0 %; Platelet Count 319 10^3/cmm (130-400); Red Blood Count 4.47 10^6/uL (4.1-5.3); Red Cell Distribution Width 13.6 % (12.1-15.1)
[2022-04-22 05:35] LABS: Estmated Average Glucose 105; Hemoglobin A1C 5.3 % (4.0-6.0)
[2022-04-22 05:40] LABS: Alanine Aminotransferase 14 U/L (0-33); Albumin Level 3.5 g/dL (3.5-5.2); Alkaline Phosphatase 58 U/L (35-105); Anion Gap 15.1 (5-19); Aspartate Amino Transferase 15 U/L (0-32); Blood Urea Nitrogen 13 mg/dL (8-23); Calcium 8.8 mg/dL (8.5-10.5); Carbon Dioxide 26 mmol/L (22-29); Chloride 104 mmol/L (98-107); Chol HDL Ratio 3.29 mg/dL (0.0-4.40); Cholesterol 112 mg/dL (0-200); Glucose 115 mg/dL (65-115); HDL Cholesterol 34 mg/dL (60-100); LDL Cholesterol Calculated 64 mg/dL (50-129); Osmolality Calculated 293 mOsm/kg (285-295); Potassium 4.1 mmol/L (3.5-5.1); Sodium 141 mmol/L (136-145); Total Bilirubin 0.4 mg/dL (0.15-1.2); Total Protein 6.5 g/dL (6.6-8.7); Triglycerides 69 mg/dL (0-150); VLDL Cholestrol Calculation 14 mg/dL (0-30)
[2022-04-22 07:29] LABS: Folate Level 12.1 ng/mL (4.8-37.3)
[2022-04-22] MEDS: hydroCHLOROthiazide 25 mg Tablet PO (08:49)
--- NOTE | 2022-04-22 11:31 | P.DS_ITS ---
Discharge Providers Date of Admission: 04/21/22 01:38 Date of Discharge: April 22, 2022 Attending Provider at Admission: Piedad Cho MD Attending Provider at Discharge: Francisco Edmond MD Primary Care Provider: MYLENE Reed Diagnoses at Discharge Discharge Diagnosis (1) Near syncope: Status: Acute (2) New onset atrial fibrillation: Status: Acute (3) RADHA on CPAP: Status: Chronic (4) Heart block: Status: Acute (5) Mixed hyperlipidemia: Status: Chronic (6) Coronary artery calcification of [place] artery: Status: Acute (7) Essential (primary) hypertension: Status: Chronic (8) Lung nodule < 6cm on CT: Status: Chronic Reason for Visit Reason for Visit: NEAR SYNCOPE Brief History: Harika Singletary is a 72 year old female is admitted to the hospital with complaints of a new syncopal episode.? She was found to be in second-degree heart block by the EMS.? She was recently diagnosed with atrial fibrillation.? Cardiology consult is requested for further cardiac evaluation recommendations. This patient apparently has been in her baseline state of health up until 10 days yesterday morning when she started having a dull aching type of pain in the lower substernal region.? It lasted for several minutes.? For this reason, she was evaluated in the [facility].? An EKG in the clinic revealed atrial fibrillation.? Details of this is not available at this time.? She was started on metoprolol succinate 25 mg daily and Xarelto.? She took a half of the metoprolol succinate around 5 PM.? She went to bed around 8:00 in the night.? Around 10:30 PM she woke up with dizziness/uneasy feeling.? She felt like she is in a different world.? She was confused.? Apparently she called her son around this time.? The son called the 911.? She was brought to the hospital emergency room for further evaluation management.? Since hospital admission, she seems to be doing okay.? The EKG in the hospital revealed a sinus rhythm with a first- degree AV block, blocked PACs and the occasional junctional escape beats. Patient has no previous history for any coronary artery disease, myocardial infarction, congestive heart failure or cardiac arrhythmia.? Few years ago, she was found to have?? Coronary calcification by CT of the chest.? Apparently the CT scan was done to follow-up on a lung lesion.? Subsequently she was seen by Dr. Helm of the [facility] and had a stress test.? This was essentially unremarkable.? She did not have any specific symptoms at that time.? She is known to have dyslipidemia and essential benign hypertension. She has no significant family history for premature atherosclerotic heart diseas, cardiac arrhythmia or pacemaker.? She smokes occasionally and also drinks socially. Hospital Course Hospital Course Patient was admitted to the hospital under observation on telemetry for symptomatic bradycardia with AV block. Her home dose of metoprolol was withheld. Recent EKG from the outpatient clinic was reviewed by cardiology and is believed instead of atrial fibrillation patient is having blocked APCs. Patient hospitalization was unremarkable and she did not have any recurrence of her symptoms. Echocardiogram was done which showed an EF of 64% grade 1 diastolic dysfunction, atrial septal aneurysm, mild dilated LA and trace UT. She denies any difficulty in breathing, nausea vomiting, headache. She has been discharged hemodynamically stable condition of metoprolol with advised to follow-up with her primary care provider within next 1 week, call in central scheduling tomorrow on Saturday for an appointment for event monitor placement and follow-up with Dr. Carranza after a month. Physical Exam Narrative: General: No acute distress, AO x3 HEENT: PERRLA, pupils bilaterally equal and reactive, pallors not present Chest: Normal vesicular breath sounds, no added sounds, equal good air entry bilaterally CVS: S1-S2 regular, occasional dropped beats, no murmurs, no tachycardia, no gallops, no rubs Abdomen: Soft, nontender, no organomegaly, bowel sounds present Neuro: No focal deficits, no facial deformity, AO x3, power 5/5 in all limbs Discharge Data Studies Completed and Pending Completed Studies During Hospitalization Category Date Time Status XR chest 1V portable [id number] Stat Exams 04/21/22 00:25 Completed CV. echo complete* [id number] Routine Ultrasound 04/21/22 09:59 Completed Radiology Impressions Chest X-Ray 04/21/22 00:25 IMPRESSION: Minimal bibasilar atelectasis left greater than right. Echocardiogram: CONCLUSIONS ?Moderate left ventricular hypertrophy. No regional wall motion ?abnormalities. Normal left ventricular size and systolic ?function, EF 64 %. Grade I/IV diastolic dysfunction (abnormal ?relaxation filling pattern), normal to mildly elevated filling ?pressures. ?Mildly increased left atrial size.? ?Atrial septal aneurysm measuring 2.3 x 1.8 cm. ?Thickened aortic valve. ?Trace pulmonary valve regurgitation. ?There is no pericardial effusion. ?There are no intracardiac masses. ?No similar previous studies are available for comparison ?Dr Gladys Carranza MD [facility] ?(Electronically Signed) ?Final Date:? ? ? 21 April 2022 ? 15:09 Laboratory Results WBC 7.0 10^3/uL (4.0-10.0) 04/22/22 05:00 RBC 4.47 10^6/uL (4.1-5.3) 04/22/22 05:00 Hgb 12.8 g/dL (11.5-15.3) 04/22/22 05:00 Hct 40.8 % (37.0-47.0) 04/22/22 05:00 MCV 91.3 fl (81-99) 04/22/22 05:00 MCH 28.6 pg (28.0-34.0) 04/22/22 05:00 MCHC 31.4 g/dL (30.0-36.0) 04/22/22 05:00 RDW 13.6 % (12.1-15.1) 04/22/22 05:00 Plt Count 319 10^3/cmm (130-400) 04/22/22 05:00 MPV 10.1 fL (7.4-10.4) 04/22/22 05:00 Neut % (Auto) 54.2 % 04/22/22 05:00 Lymph % (Auto) 35.1 % 04/22/22 05:00 [place] % (Auto) 6.9 % 04/22/22 05:00 Eos % (Auto) 3.3 % 04/22/22 05:00 Baso % (Auto) 0.4 % 04/22/22 05:00 Neut # (Auto) 3.78 10^3/uL (1.8-7.7) 04/22/22 05:00 Lymph # (Auto) 2.5 10^3/uL (0.8-4.8) 04/22/22 05:00 [place] # (Auto) 0.5 10^3/uL (0.2-0.9) 04/22/22 05:00 Eos # (Auto) 0.2 10^3/uL (0.0-0.8) 04/22/22 05:00 Baso # (Auto) 0.0 10^3/uL (0.0-0.1) 04/22/22 05:00 Nucleated RBC % (auto) 0 % 04/22/22 05:00 Nucleated RBCs # 0.0 /100WBC 04/22/22 05:00 Sodium 141 mmol/L (136-145) 04/22/22 05:00 Potassium 4.1 mmol/L (3.5-5.1) 04/22/22 05:00 Chloride 104 mmol/L (98-107) 04/22/22 05:00 Carbon Dioxide 26 mmol/L (22-29) 04/22/22 05:00 Anion Gap 15.1 (5-19) 04/22/22 05:00 BUN 13 mg/dL (8-23) 04/22/22 05:00 Creatinine 0.6 mg/dL (0.5-0.9) 04/22/22 05:00 GFR Calculation Not Reportable 04/22/22 05:00 Glucose 115 mg/dL (65-115) 04/22/22 05:00 Estimat Average Glucose 105 04/22/22 05:00 Hemoglobin A1c 5.3 % (4.0-6.0) 04/22/22 05:00 Calculated Osmolality 293 mOsm/kg (285-295) 04/22/22 05:00 Calcium 8.8 mg/dL (8.5-10.5) 04/22/22 05:00 Iron 25 ug/dL (37-145) L 04/21/22 05:33 TIBC 323 mcg/dl 04/21/22 05:33 % Saturation 7.7 % (20-50) L 04/21/22 05:33 Unsat Iron Binding 298 ug/dL (112-347) 04/21/22 05:33 Total Bilirubin 0.4 mg/dL (0.15-1.2) 04/22/22 05:00 AST 15 U/L (0-32) 04/22/22 05:00 ALT 14 U/L (0-33) 04/22/22 05:00 Alkaline Phosphatase 58 U/L (35-105) 04/22/22 05:00 Troponin T Baseline 7 ng/L (0-10) 04/21/22 00:50 Troponin T Hi Sens 6Hr 8.61 ng/L (0-10) 04/21/22 06:24 Troponin T Hi Sens 6Hr Delta 1.61 ng/L (0-12) 04/21/22 06:24 NT-Pro-B Natriuret Pep 380 pg/mL (0-125) H 04/21/22 05:33 Total Protein 6.5 g/dL (6.6-8.7) L 04/22/22 05:00 Albumin 3.5 g/dL (3.5-5.2) 04/22/22 05:00 Globulin 3.0 g/dL (1.3-4.6) 04/22/22 05:00 Triglycerides 69 mg/dL (0-150) 04/22/22 05:00 Cholesterol 112 mg/dL (0-200) 04/22/22 05:00 LDL Cholesterol, Calc 64 mg/dL (50-129) 04/22/22 05:00 Total VLDL Cholesterol 14 mg/dL (0-30) 04/22/22 05:00 HDL Cholesterol 34 mg/dL (60-100) L 04/22/22 05:00 Cholesterol/HDL Ratio 3.29 mg/dL (0.0-4.40) 04/22/22 05:00 Vitamin B12 366 pg/mL (232-1245) 04/21/22 05:33 Folate 12.1 ng/mL (4.8-37.3) 04/22/22 05:00 TSH 1.28 uIU/mL (0.27-4.20) 04/21/22 05:33 Urine Color Yellow (Yellow) 04/21/22 15:44 Urine Appearance Clear (CLEAR) 04/21/22 15:44 Urine pH 7 (5-7) 04/21/22 15:44 Ur Specific [place] 1.015 (1.005-1.030) 04/21/22 15:44 Urine Protein Neg (Negative) 04/21/22 15:44 Urine Glucose (UA) Norm (Normal) 04/21/22 15:44 Urine Ketones Negative (Negative) 04/21/22 15:44 Urine Blood Neg (Negative) 04/21/22 15:44 Urine Nitrate Negative (Negative) 04/21/22 15:44 Urine Bilirubin Neg (Negative) 04/21/22 15:44 Urine Urobilinogen 4 mg/dL (Negative) H 04/21/22 15:44 Ur Leukocyte Esterase Negative (Negative) 04/21/22 15:44 Vitals Last Vital Signs Temp 98.4 F 04/22/22 07:36 Pulse 72 04/22/22 08:22 Resp 16 04/22/22 08:22 BP 122/74 04/22/22 07:36 Pulse Ox 94 04/22/22 08:22 O2 Del Method 04/22/22 08:22 FiO2 21 04/22/22 10:28 Discharge Plan Discharge Patient Disposition: Home Condition: Stable Prescriptions: Continued (DME) CPAP auto titration See Rx Instructions .ROUTE .MEDSUPPLY Qty: 1 0RF Rx Instructions: auto titration up to 14 pressure For 99 months diazepam 2 mg tablet 2 mg PO .HS PRN (Reason: anxiety) Qty: 30 0RF epinephrine [EpiPen 2-Kyrie] 0.3 mg/0.3 mL auto-injector 0.3 mg IM ONCE Qty: 2 2RF Rx Instructions: as a single dose rosuvastatin 10 mg tablet 10 mg PO DAILY Qty: 30 5RF hydrochlorothiazide 25 mg tablet 25 mg PO DAILY Qty: 30 5RF ondansetron HCl 4 mg tablet 4 mg PO Q8H PRN (Reason: nausea and vomiting) Qty: 7 0RF Vitamin B-12 50 mcg Tablet 50 mcg PO DAILY Vitamin C 500 mg Tablet 500 mg PO DAILY Vitamin D3 25 mcg (1,000 unit) Capsule 25 mcg PO DAILY Discontinued metoprolol succinate [Toprol XL] 25 mg tablet extended release 24 hr 25 mg PO DAILY Qty: 30 1RF Discharge Orders: Discharge Order (Routine); Ordered 04/22/22 Ordered By: Francisco Edmond Other Ambulatory Orders: MCT/Event Monitor 21 Days (Routine) Timeframe: 1 Week Facility: [facility] - Location: Radiology Ordered By: Francisco Edomnd Referrals: [facility] [Provider Group] (Please call [facility] on Saturday at [phone] to schedule an appointment for a 21 day event monitor. Thank you.) Gladys Carranza MD [Physician] - 1 month (Please call Dr. Carranza's Office on Saturday at [phone] to schedule a follow up appointment for 1 month. Thank you.) Perfecto Silva, CERTIFIED [employer]ILD[employer] ENGINEER-C [Primary Care Provider] - 7-10 days (Please call Perfecto Silva's Office on Saturday at [phone] to schedule a follow up appointment for 7-10 days. Thank you.) Discharge Diet: Cardiac Discharge Activity: Resume usual activity and Increase activity as tolerated Patient Instructions: Opioid Safety Activity Restrictions/Additional Instructions: Do not take metoprolol going forward. Continue all your medical medications as before. Follow-up with a primary care provider within next 1 week. Follow-up with Dr. Carranza within next 1 month. Please call scheduling tomorrow on Saturday for event monitor. Discharge Attestations Time Spent in Discharge Care*: greater than 30 min Specific Discharge Activities: educating patient, educating and/or supporting family/caregiver, discussing with pcp/other providers, discussing with case technician/social workers/dc planners, documenting/other paperwork and evaluating patient/reviewing data Status at Discharge: Cognitive status at discharge: cognitively intact , Behavioral status at discharge: cooperative , Functional status at discharge: independent ambulation , Overall status at discharge: patient is back to baseline Quality Metrics Clinical Quality Measures [ No reported AMI, CVA or VTE this stay] Coding Level of Care Code 43898 Total time (in minutes) for Discharge: 60 Diagnoses Near syncope R55 New onset atrial fibrillation I48.91 RADAH on CPAP G47.33; Z99.89 Heart block I45.9 Mixed hyperlipidemia E78.2 Coronary artery calcification of unga artery I25.10; I25.84 Essential (primary) hypertension I10 Lung nodule < 6cm on CT R91.1
--- NOTE | 2022-04-22 12:43 | P.PN_ITS ---
Subjective Subjective: The patient is feeling okay. Has not had a recurrence of atrial fibrillation. Vital signs remained stable. Medications: Medication Review Details: Current Medications Acetaminophen (Acetaminophen 325 Mg Tablet) 650 mg PO Q6H PRN PRN Reason: Mild/Mod Pain Or Temp >/= 101 Atorvastatin Calcium (Atorvastatin 40 Mg Tablet) 40 mg PO DAILY [facility] Last Admin: 04/22/22 08:48 Dose: Not Given Diazepam (Diazepam 2 Mg Tablet) 2 mg PO BEDTIME PRN PRN Reason: anxiety Enoxaparin Sodium (Enoxaparin 40 Mg/0.4 Ml Syringe) 40 mg SUBCUT Q24H [facility] Last Admin: 04/22/22 04:40 Dose: 40 mg Hydrochlorothiazide (Hydrochlorothiazide 25 Mg Tablet) 25 mg PO DAILY [facility] Last Admin: 04/22/22 08:49 Dose: 25 mg Morphine Sulfate (Morphine 4 Mg/Ml Sdv 1 Ml) 2 mg IVP Q4H PRN PRN Reason: SEVERE PAIN Naloxone HCl (Naloxone 0.4 Mg/Ml Sdv) 0.1 mg IVP Q2M PRN PRN Reason: OPIATERV Ondansetron HCl (Ondansetron 2 Mg/Ml Sdv 2 Ml) 4 mg IVP Q8H PRN PRN Reason: vomiting, or N/V if npo Pantoprazole Sodium (Pantoprazole Dr 40 Mg Tablet) 40 mg PO DAILY [facility] Last Admin: 04/22/22 08:50 Dose: Not Given Vitals/I&O/Wt Last Vital Signs Temp 97.9 F 04/22/22 12:00 Pulse 78 04/22/22 12:00 Resp 16 04/22/22 12:00 BP 133/76 04/22/22 12:00 Pulse Ox 90 04/22/22 12:00 O2 Del Method 04/22/22 12:00 FiO2 21 04/22/22 10:28 04/21/22 04/22/22 04/22/22 21:59 06:59 14:59 Intake Total 480 / 480 Balance 480 / 480 Weight last 48 hrs Weight 190 lb Physical Exam Narrative: GENERAL: The patient is alert and oriented times three. Not in any acute distress. Overweight HEENT: No significant pallor, icterus or lymphadenopathy.Oral cavity: There are no mucous membrane lesions. NECK: Trachea appears to be central. No masses noted. No JVD or thyromegaly appreciated. RESPIRATORY: Chest is symmetrical. No intercostals muscle retraction or any accessory muscle activation. There is no chest wall tenderness. Breath sounds are heard bilaterally. No rales or rhonchi heard. No evidence of any consolidation. BREASTS: Deferred. HEART: The heart sounds are normal. No S3 or S4. No significant murmurs. No pericardial rub ABDOMEN: No vessel pulsations or distention. No tenderness. No organomegaly appreciated. Bowel sounds are normally heard. : Deferred. RECTAL: Deferred. LYMPHATIC: No lymphadenopathy noted in the neck. EXTREMITIES: No edema or cyanosis. No clubbing. MUSCULOSKELETAL: No acute joint deformities or swelling SKIN: There are no significant rashes or ecchymosis NEUROPSYCHIATRIC: The patient is alert and oriented x3. Appears to be in a good mood. No tremors or rigidity noted. Data 04/22/22 05:00 04/22/22 05:00 Other Labs: Laboratory Last Values WBC 7.0 10^3/uL (4.0-10.0) 04/22/22 05:00 RBC 4.47 10^6/uL (4.1-5.3) 04/22/22 05:00 Hgb 12.8 g/dL (11.5-15.3) 04/22/22 05:00 Hct 40.8 % (37.0-47.0) 04/22/22 05:00 MCV 91.3 fl (81-99) 04/22/22 05:00 MCH 28.6 pg (28.0-34.0) 04/22/22 05:00 MCHC 31.4 g/dL (30.0-36.0) 04/22/22 05:00 RDW 13.6 % (12.1-15.1) 04/22/22 05:00 Plt Count 319 10^3/cmm (130-400) 04/22/22 05:00 MPV 10.1 fL (7.4-10.4) 04/22/22 05:00 Neut % (Auto) 54.2 % 04/22/22 05:00 Lymph % (Auto) 35.1 % 04/22/22 05:00 [place] % (Auto) 6.9 % 04/22/22 05:00 Eos % (Auto) 3.3 % 04/22/22 05:00 Baso % (Auto) 0.4 % 04/22/22 05:00 Neut # (Auto) 3.78 10^3/uL (1.8-7.7) 04/22/22 05:00 Lymph # (Auto) 2.5 10^3/uL (0.8-4.8) 04/22/22 05:00 [place] # (Auto) 0.5 10^3/uL (0.2-0.9) 04/22/22 05:00 Eos # (Auto) 0.2 10^3/uL (0.0-0.8) 04/22/22 05:00 Baso # (Auto) 0.0 10^3/uL (0.0-0.1) 04/22/22 05:00 Nucleated RBC % (auto) 0 % 04/22/22 05:00 Nucleated RBCs # 0.0 /100WBC 04/22/22 05:00 Sodium 141 mmol/L (136-145) 04/22/22 05:00 Potassium 4.1 mmol/L (3.5-5.1) 04/22/22 05:00 Chloride 104 mmol/L (98-107) 04/22/22 05:00 Carbon Dioxide 26 mmol/L (22-29) 04/22/22 05:00 Anion Gap 15.1 (5-19) 04/22/22 05:00 BUN 13 mg/dL (8-23) 04/22/22 05:00 Creatinine 0.6 mg/dL (0.5-0.9) 04/22/22 05:00 GFR Calculation Not Reportable 04/22/22 05:00 Glucose 115 mg/dL (65-115) 04/22/22 05:00 Estimat Average Glucose 105 04/22/22 05:00 Hemoglobin A1c 5.3 % (4.0-6.0) 04/22/22 05:00 Calculated Osmolality 293 mOsm/kg (285-295) 04/22/22 05:00 Calcium 8.8 mg/dL (8.5-10.5) 04/22/22 05:00 Iron 25 ug/dL (37-145) L 04/21/22 05:33 TIBC 323 mcg/dl 04/21/22 05:33 % Saturation 7.7 % (20-50) L 04/21/22 05:33 Unsat Iron Binding 298 ug/dL (112-347) 04/21/22 05:33 Total Bilirubin 0.4 mg/dL (0.15-1.2) 04/22/22 05:00 AST 15 U/L (0-32) 04/22/22 05:00 ALT 14 U/L (0-33) 04/22/22 05:00 Alkaline Phosphatase 58 U/L (35-105) 04/22/22 05:00 Troponin T Baseline 7 ng/L (0-10) 04/21/22 00:50 Troponin T Hi Sens 6Hr 8.61 ng/L (0-10) 04/21/22 06:24 Troponin T Hi Sens 6Hr Delta 1.61 ng/L (0-12) 04/21/22 06:24 NT-Pro-B Natriuret Pep 380 pg/mL (0-125) H 04/21/22 05:33 Total Protein 6.5 g/dL (6.6-8.7) L 04/22/22 05:00 Albumin 3.5 g/dL (3.5-5.2) 04/22/22 05:00 Globulin 3.0 g/dL (1.3-4.6) 04/22/22 05:00 Triglycerides 69 mg/dL (0-150) 04/22/22 05:00 Cholesterol 112 mg/dL (0-200) 04/22/22 05:00 LDL Cholesterol, Calc 64 mg/dL (50-129) 04/22/22 05:00 Total VLDL Cholesterol 14 mg/dL (0-30) 04/22/22 05:00 HDL Cholesterol 34 mg/dL (60-100) L 04/22/22 05:00 Cholesterol/HDL Ratio 3.29 mg/dL (0.0-4.40) 04/22/22 05:00 Vitamin B12 366 pg/mL (232-1245) 04/21/22 05:33 Folate 12.1 ng/mL (4.8-37.3) 04/22/22 05:00 TSH 1.28 uIU/mL (0.27-4.20) 04/21/22 05:33 Urine Color Yellow (Yellow) 04/21/22 15:44 Urine Appearance Clear (CLEAR) 04/21/22 15:44 Urine pH 7 (5-7) 04/21/22 15:44 Ur Specific [place] 1.015 (1.005-1.030) 04/21/22 15:44 Urine Protein Neg (Negative) 04/21/22 15:44 Urine Glucose (UA) Norm (Normal) 04/21/22 15:44 Urine Ketones Negative (Negative) 04/21/22 15:44 Urine Blood Neg (Negative) 04/21/22 15:44 Urine Nitrate Negative (Negative) 04/21/22 15:44 Urine Bilirubin Neg (Negative) 04/21/22 15:44 Urine Urobilinogen 4 mg/dL (Negative) H 04/21/22 15:44 Ur Leukocyte Esterase Negative (Negative) 04/21/22 15:44 A&P Assessment and plan (1) Near syncope: The etiology is not clear. The rhythm strip that is obtained from the ambulance shows that the patient is in first-degree heart block with frequent blocked PACs. Possibility of her having high degree AV block cannot be excluded. This needs to be closely monitored. (2) New onset atrial fibrillation: The EKG with atrial fibrillation also is not available. If the patient has intermittent atrial fibrillation, she may need an antiarrhythmic drug. I will try to get the EKG from the [facility]. After reviewing the EKG, further recommendations will be made. (3) RADHA on CPAP: Patient may be continued on the treatment. (4) Heart block: Currently the patient has first-degree AV block with frequent blocked PACs. (5) Mixed hyperlipidemia: May continue on the current management. (6) Coronary artery calcification of [place] artery: Continue the risk factor modification. (7) Essential (primary) hypertension: Currently she is normotensive. Continue on the current management. (8) Lung nodule < 6cm on CT: Follow-up evaluation as per the primary care. Plan Patient may continue on the current medications. An event monitor would be appropriate to further evaluate the arrhythmia. If the patient is initially stable, may be discharged home from a cardiac standpoint. Event monitor as an outpatient Attestations Medical Necessity Statement*: Disposition as per the primary Coding Level of Care Code Acute Code for Chg Fwd Diagnoses Near syncope R55 New onset atrial fibrillation I48.91 RADHA on CPAP G47.33; Z99.89 Heart block I45.9 Mixed hyperlipidemia E78.2 Coronary artery calcification of [place] artery I25.10; I25.84 Essential (primary) hypertension I10 Lung nodule < 6cm on CT R91.1
== END 2022-04-22 14:34 | disposition home or self-care (01) ==
LOC: ER 01:43 → CSU 02:06
PROVIDERS: Admitting Provider Student in an Organized Health Care Education/Training Program; Emergency Provider Emergency Medicine; PCP Nurse Practitioner; Visit Provider Student in an Organized Health Care Education/Training Program
DX: I44.1 Atrioventricular block, second degree (principal); I10 Essential (primary) hypertension; I48.91 Unspecified atrial fibrillation; E78.2 Mixed hyperlipidemia; G47.33 Obstructive sleep apnea (adult) (pediatric); F41.9 Anxiety disorder, unspecified; E55.9 Vitamin D deficiency, unspecified; F17.210 Nicotine dependence, cigarettes, uncomplicated; I25.10 Atherosclerotic heart disease of native coronary artery without angina pectoris; R91.8 Other nonspecific abnormal finding of lung field
CPT/HCPCS: 36415; 71045; 80053; 80061; 81003; 82607; 82746; 83036; 83540; 83550; 83880; 84443; 84484; 85025; 93005; 93306; 94660; 96372; 99285; G0378; J1650

== ENCOUNTER 2022-05-07 13:56 | Outpatient (CLI) | payer MEDICARE, SELFPAY ==
--- NOTE | 2022-05-07 14:07 | MM_ITS ---
WS: [id number] BILATERAL 3D TOMOSYNTHESIS DIGITAL SCREENING MAMMOGRAPHY WITH CAD CLINICAL INFORMATION: Z12.39 - Encounter for other screening for malignant neop... HISTORY: Screening mammogram. No current complaints. COMPARISON: August 25, 2020 TECHNIQUE: Bilateral CC and MLO views. FINDINGS: Scattered fibroglandular densities bilaterally. No suspicious focal mass, asymmetry, calcifications, or architectural distortion. No evidence of malignancy. Incidental punctate calcifications. Vascular calcifications. MM/[place] [id number] IMPRESSION: BI-RADS: 2-Benign FOLLOW UP: 1 Year Follow-up Recommend return to annual screening mammography.
== END 2022-05-07 13:57 | disposition home or self-care (01) ==
LOC: RAD 13:58
PROVIDERS: PCP Nurse Practitioner; Visit Provider Family Medicine
DX: Z12.31 Encounter for screening mammogram for malignant neoplasm of breast (principal); R55 Syncope and collapse
CPT/HCPCS: 77063; 77067; 99213

== ENCOUNTER 2022-10-04 06:00 | Outpatient (RCR) | payer MEDICARE, SELFPAY | END 2022-10-11 23:59 | disposition home or self-care (01) | LOC: TPT 06:00 | PROVIDERS: PCP Family Medicine; Visit Provider Family Medicine | DX: M54.32 Sciatica, left side (principal) | CPT/HCPCS: 97110; 97161 ==

== ENCOUNTER 2022-10-12 06:00 | Outpatient (RCR) | payer MEDICARE, SELFPAY | END 2022-11-10 23:59 | disposition home or self-care (01) | LOC: TPT 06:00 | PROVIDERS: PCP Family Medicine; Visit Provider Family Medicine | DX: M54.32 Sciatica, left side (principal) | CPT/HCPCS: 97110 ==

== ENCOUNTER → 2022-10-16 15:21 | Outpatient (BNVA) | payer MEDICARE, SELFPAY | PROVIDERS: PCP Family Medicine; Visit Provider Internal Medicine Cardiovascular Disease | DX: I25.10 Atherosclerotic heart disease of native coronary artery without angina pectoris (principal); I25.84 Coronary atherosclerosis due to calcified coronary lesion; I10 Essential (primary) hypertension; G47.33 Obstructive sleep apnea (adult) (pediatric); Z99.89 Dependence on other enabling machines and devices; R55 Syncope and collapse; Z87.891 Personal history of nicotine dependence | CPT/HCPCS: 99214 ==

== ENCOUNTER → 2022-10-17 09:18 | Outpatient (BNVA) | payer MEDICARE, SELFPAY | PROVIDERS: PCP Family Medicine; Visit Provider Family Medicine | DX: I10 Essential (primary) hypertension (principal); E55.9 Vitamin D deficiency, unspecified; I48.91 Unspecified atrial fibrillation; I25.10 Atherosclerotic heart disease of native coronary artery without angina pectoris | CPT/HCPCS: 80053; 80061; 82306; 84443; 85025 ==

== ENCOUNTER 2022-11-11 06:00 | Outpatient (RCR) | payer MEDICARE, SELFPAY | END 2022-12-11 23:59 | disposition home or self-care (01) | LOC: TPT 06:00 | PROVIDERS: PCP Family Medicine; Visit Provider Family Medicine | DX: M54.32 Sciatica, left side (principal) | CPT/HCPCS: 97110 ==

== ENCOUNTER 2023-03-09 23:45 | Emergency (ER) | payer MEDICARE, SELFPAY ==
[2023-03-10 00:03] VITALS: BP 173/72; PULSE 83; RESP 17; TEMP 36.4; O2SAT 99; BMI 33.3
--- NOTE | 2023-03-10 02:30 | XRR_ITS ---
PROCEDURE INFORMATION: Exam: XR Lumbosacral Spine Exam date and time: 03/10/2023 2:36 AM Age: 73 years old Clinical indication: Prior surgery; Surgery date: 6+ months; Surgery type: Hysterectomy; Patient HX: C/O left sided low back pain. No injury. ; Additional info: L sided back pain TECHNIQUE: Imaging protocol: Radiologic exam of the lumbosacral spine. Views: 2 or 3 views. COMPARISON: CR XR hip LT 2-3V wo/w pel* [id number] 05/21/2017 7:01 AM FINDINGS: Bones/joints: There is an 8 degree levoconvex curvature of the lumbar spine centered at L3. Multilevel lumbar spondylosis is noted with disc space narrowing, facet arthropathy, osteophytosis, worse at the lumbosacral junction. Soft tissues: Unremarkable. XR/XR lumbar spine 2-3V* [id number] IMPRESSION: Lumbar spondylosis and levoscoliosis.
--- NOTE | 2023-03-10 16:50 | ED_ITS ---
HPI - Back Pain/Injury General: Chief Complaint: Back Pain/Injury Stated Complaint: lower back pain Time Seen by Provider: 03/10/23 02:03 History of Present Illness: 73 year old female who was treated for ? sciatica? by her doctor five days ago. She initially improved. Over the last 24 hours, she has experienced increased pain to the left lumbosacral junction. Pain is non radicular. Worse with some movements. She has one dose of steroid medication left from her doctor. She took ibuprofen at home without much improvement. No fever. No changes in her bowel or bladder function. No anesthesia Associated symptoms: Deny abdominal pain, dysuria, fever(s), nausea or vomiting Review of Systems Const: Denies: fever(s) Resp: Denies: dyspnea GI: Denies: abdominal pain, nausea or vomiting : Denies: flank pain, difficulty voiding or dysuria Musc: Reports: back pain; Denies: neck pain Neuro: Denies: headache(s) PFSH ED PFSH: Medical History RADHA on CPAP Lung nodule < 6cm on CT History of food anaphylaxis Shell fish Body mass index (BMI) of 33.0-33.9 in adult DDD (degenerative disc disease) Essential (primary) hypertension Mixed hyperlipidemia Situational anxiety Vitamin D deficiency Surgical History History of hysterectomy History of cataract surgery Family History Other Cancer Hypertension Social History Smoking and tobacco/nicotine status: former use of tobacco/nicotine Second hand smoke exposure: No Alcohol intake: current Alcohol intake frequency: holidays/special occasions only Alcohol type: wine Substance/Drug Use: never Adopted: No Caregiver/support person: No Lives independently: Yes Household members: none Housing: House Marital status: Single Current occupational status: retired Do you think of yourself as: Straight/Heterosexual Current gender identity: Female Physical Exam Const: COMMON NORMALS: no acute distress GENERAL APPEARANCE: cooperative; not ill appearing and not frail appearing HENMT: COMMON NORMALS: normocephalic, atraumatic and Normal external nose present HEAD & SCALP: normocephalic and atraumatic FACE & SINUS: normal facial exam and face symmetric NOSE: Normal external nose present Eye: COMMON NORMALS: Equal, round and reactive pupils present and EOMs intact bilaterally PUPIL: Yes Equal, round and reactive pupils present Neck/C-Spine: GENERAL: Yes trachea midline Chest: CHEST: Yes Symmetrical chest wall rise Resp: COMMON NORMALS: normal respiratory effort, No retractions, No use of accessory muscles and clear to auscultation bilaterally AUSCULTATION: clear to auscultation bilaterally Cardio: COMMON NORMALS: regular rate and regular rhythm RATE: regular rate RHYTHM: regular rhythm GI: COMMON NORMALS: Normal to inspection, nondistended, normoactive bowel sounds present Back/Pelvis: OTHER: Examination of the lumbar spine reveals no midline tenderness. There is tenderness to the left side of the midline, and over the SI joint superior on the left. Straight leg race test is negative bilaterally. Strength is intact. Sensation is intact. Extremity: COMMON NORMALS: no pedal edema Neuro: KATHARINE COMA SCALE: document GCS findings Monument coma scale eye opening: Spontaneous Monument coma scale verbal response: Orientated Katharine coma scale motor response: Obey commands Monument coma scale total score: 15 SENSORY EXAM: Yes extremities (intact) Psych: COMMON NORMALS: speech normal SPEECH: Yes normal speech Skin: COMMON NORMALS: no rashes or lesions noted GENERAL SKIN EXAM: no rashes or lesions noted Course Vital Signs: Vital signs: Vital Signs Temperature 97.5 F L 03/10/23 00:03 Pulse Rate 83 03/10/23 00:03 Respiratory Rate 17 03/10/23 00:03 Blood Pressure 173/72 03/10/23 00:03 Pulse Oximetry 99 03/10/23 00:03 Oxygen Delivery Me thod Room Air 03/10/23 00:03 MDM - Back Pain/Injury Medical Decision Making X-ray reveals significant lumbosacral Spondylosis. No fractures or Bony lesions noted. She was offered pain medication, but did not want it. She has given an injection of dexamethasone here. We'll switch her Methylprednisolone to Prednisone, and provide a longer slower taper. She will take her ibuprofen at home for pain. she has muscle relaxers as well. She knows to return for worsening symptoms. Outpatient follow up this week. Labs Radiology Impressions Lumbar Spine X-Ray 01/28/24 02:30 IMPRESSION: Lumbar spondylosis and levoscoliosis. All radiology interpretation(s) finalized by discharge Discharge Plan Discharge Patient Disposition: Home Clinical Impression: Sciatica of left side Condition: Stable Prescriptions: New prednisone 10 mg tablet 10 mg PO DIRECTED Qty: 21 0RF Rx Instructions: 4 [id number], 2 [id number], [id number] No Action (DME) CPAP auto titration See Rx Instructions .ROUTE .MEDSUPPLY Qty: 1 0RF Rx Instructions: auto titration up to 14 pressure For 99 months cyclobenzaprine 10 mg tablet 10 mg PO TID Qty: 60 2RF diazepam 2 mg tablet 2 mg PO .HS PRN (Reason: anxiety) Qty: 30 0RF curcumin-phosphatidylcholine 500 mg capsule PO turmeric 400 mg capsule PO .3-4 times daily DEBBIE Soothe 100-100-225 mg capsule PO DAILY PRN epinephrine 0.3 mg/0.3 mL auto-injector See Rx Instructions .ROUTE .COMPLEX Qty: 2 2RF Dose Instruction: INJECT 0.3MG (0.3ML) INTRAMUSCULARLY ONCE A SINGLE DOSE Rx Instructions: INJECT 0.3MG (0.3ML) INTRAMUSCULARLY ONCE A SINGLE DOSE doxycycline hyclate 100 mg tablet 100 mg PO BID Qty: 20 0RF ibuprofen 800 mg tablet 800 mg PO Q8H PRN (Reason: pain) Qty: 60 1RF ondansetron HCl 4 mg tablet 4 mg PO Q8H PRN (Reason: nausea and vomiting) Qty: 7 0RF Ed A-Hist DM 4-10-15 mg/5 mL liquid 5 ml PO Q6H PRN (Reason: cold symptoms) Qty: 160 0RF hydrochlorothiazide 25 mg tablet See Rx Instructions .ROUTE .COMPLEX Qty: 30 5RF Dose Instruction: TAKE ONE TABLET BY MOUTH ONCE DAILY Rx Instructions: TAKE ONE TABLET BY MOUTH ONCE DAILY rosuvastatin 10 mg tablet See Rx Instructions .ROUTE .COMPLEX Qty: 30 5RF Dose Instruction: TAKE ONE TABLET BY MOUTH ONCE DAILY Rx Instructions: TAKE ONE TABLET BY MOUTH ONCE DAILY Vitamin B-12 50 mcg Tablet 50 mcg PO DAILY Vitamin C 500 mg Tablet 500 mg PO DAILY Vitamin D3 25 mcg (1,000 unit) Capsule 25 mcg PO DAILY Discharge Orders: Discharge ED (Routine); Ordered 03/10/23 Ordered By: Jordan Woo Referrals: Eneida Nice MD [Primary Care Provider] - Patient Instructions: Sciatica (ED), Opioid Safety, Pain Management Activity Restrictions/Additional Instructions: Medication as directed. See your doctor next week and follow-up. Coding Level of Care Code ED Auto Damage Estimator for Teri Wright
== END 2023-03-10 03:31 | disposition home or self-care (01) ==
PROVIDERS: Emergency Provider Emergency Medicine; PCP Family Medicine
DX: M54.32 Sciatica, left side (principal); Z87.891 Personal history of nicotine dependence; I10 Essential (primary) hypertension; E78.2 Mixed hyperlipidemia
CPT/HCPCS: 72100; 99283

== ENCOUNTER 2023-03-28 06:00 | Outpatient (RCR) | payer MEDICARE, SELFPAY | END 2023-04-11 23:59 | disposition home or self-care (01) | LOC: TPT 06:00 | PROVIDERS: Visit Provider Family Medicine | DX: M54.32 Sciatica, left side (principal); M54.50 Low back pain, unspecified; G89.29 Other chronic pain | CPT/HCPCS: 97110; 97162 ==

== ENCOUNTER 2023-04-12 06:00 | Outpatient (RCR) | payer MEDICARE, SELFPAY | END 2023-05-12 23:59 | disposition home or self-care (01) | LOC: TPT 06:00 | PROVIDERS: PCP Family Medicine; Visit Provider Family Medicine | DX: M54.42 Lumbago with sciatica, left side (principal) | CPT/HCPCS: 97110 ==

== ENCOUNTER → 2023-06-05 13:54 | Outpatient (BNVA) | payer MEDICARE, SELFPAY | PROVIDERS: PCP Family Medicine; Visit Provider Family Medicine | DX: M54.50 Low back pain, unspecified (principal); G89.29 Other chronic pain; W57.XXXA Bitten or stung by nonvenomous insect and other nonvenomous arthropods, initial encounter; B35.9 Dermatophytosis, unspecified | CPT/HCPCS: 86618; 86666; 86757 ==

== ENCOUNTER 2023-09-09 14:00 | Outpatient (CLI) | payer MEDICARE, SELFPAY ==
--- NOTE | 2023-09-09 14:00 | CT_ITS ---
WS: [id number] CT chest wo con [id number] HISTORY: lung nodule TECHNIQUE: Axial imaging performed through the thorax. Coronal and sagittal reformats are submitted. All CT scans at [facility] use at least one of these dose optimization techniques: automated exposure control; mA and/or kV adjustment per patient size (includes targeted exams where dose is mat ched to clinical indication); or iterative reconstruction. CONTRAST: None DLP: 562.19 mGy.cm COMPARISON: 04/16/2022, 05/06/2019, 06/02/2018 Lungs and central airway: Mild pulmonary hyperinflation. Reidentified is a slightly spiculated 4 mm n odule at the RIGHT apex which has been present and stable over multiple prior years. No pneumonia. Pleura: Normal. No pleural effusion. Heart and pericardium: Normal size heart with no pericardial effusion. Mediastinum and kaleb: Small mediastinal and hilar lymph nodes. No adenopathy or increasing size of ly mph nodes. Vessels: Normal size aortic and pulmonary artery. No coronary artery calcifications. Chest wall and lower neck: No soft tissue masses. Upper abdomen: Small hiatal hernia. Osseous structures: No destructive process. CT/CT chest wo con [id number] IMPRESSION: 1. Stable 4 mm nodule at the RIGHT lung apex from multiple prior years. No add itional follow-up necessary. 2. No pneumonia. 3. Stable mediastinal and hilar lymph nodes.
== END 2023-09-09 14:05 | disposition home or self-care (01) ==
PROVIDERS: PCP Family Medicine; Visit Provider Family Medicine
DX: R91.1 Solitary pulmonary nodule (principal)
CPT/HCPCS: 71250

== ENCOUNTER 2023-11-28 10:37 | Outpatient (CLI) | payer MEDICARE, SELFPAY ==
--- NOTE | 2023-11-28 10:42 | MM_ITS ---
WS: [id number] Bilateral screening 3D tomosynthesis digital mammogram, 11/28/2023 11:40 AM Clinical Data: SCREENING Comparison: 05/07/2022, 08/25/2020, 06/18/2018, 08/30/2016, 07/22/2014, 12/01/2012, 08/20/2011, 01/30/2010, , 05/15/2007, 04/22/2006. Findings: No spiculated masses or clustered calcifications are seen. There are no secondary signs of carcinoma . MM/MM [facility] tomosynthesis [id number] Impression: Negative bilateral mammogram unchanged. Recommend annual screening mammograms. BIRADS: 1 - Negative. FOLLOW UP: 1 Year Follow-up DENSITY: There are scattered areas of fibroglandular density. The CAD rechecker was used
== END 2023-11-28 10:38 | disposition home or self-care (01) ==
PROVIDERS: PCP Internal Medicine; Visit Provider Internal Medicine
DX: Z12.31 Encounter for screening mammogram for malignant neoplasm of breast (principal)
CPT/HCPCS: 77063; 77067

== ENCOUNTER 2023-12-01 11:25 | Emergency (ER) | payer MEDICARE, SELFPAY ==
[2023-12-01 11:35] VITALS: BP 138/77; PULSE 86; RESP 17; TEMP 36.7; O2SAT 96; BMI 34.1
--- NOTE | 2023-12-01 11:54 | W.ED.BACK ---
HPI - Back Pain/Injury General: Chief Complaint: Back Pain/Injury Stated Complaint: back pain Time Seen by Provider: 12/01/23 11:44 History of Present Illness: 73-year-old female who has had issues with lumbar back pain. She has had a slipped disc. She is followed with Ortho in [place]. She did some physical therapy. The last time this happened she had gotten a steroid shot and did the physical therapy and had improved. On Saturday she started having pain again. She went to urgent care and got a steroid shot and was placed on steroids at home which have not helped yet. She says she does not want any pain medications. But would like to try a steroid shot again to see if that does not help. No saddle numbness, no urinary retention or incontinence, no focal motor deficit, no sensory deficit. no recent fever. no cough. no shortness of breath. no chest pain. no abdominal pain. no nausea or vomiting. no dysuria. no altered mental status. no edema. Related Data Home Medications Medication Instructions Recorded Confirmed ascorbic acid (vitamin C) 500 mg 500 mg PO DAILY 04/21/22 11/30/23 tablet (Vitamin C) cholecalciferol (vitamin D3) 25 25 mcg PO DAILY 04/21/22 11/30/23 mcg (1,000 unit) capsule (Vitamin D3) cyanocobalamin (vitamin B-12) 50 50 mcg PO DAILY 04/21/22 11/30/23 mcg tablet (Vitamin B-12) curcumin-phosphatidylcholine 500 mg PO 05/07/22 11/30/23 mg capsule DEBBIE 100 mg-theanine 100 cap PO DAILY PRN 05/22/22 11/30/23 mg-ashwagandha extract 225 mg capsule (DEBBIE Soothe) turmeric 400 mg capsule mg PO .3-4 times daily 05/22/22 11/30/23 Previous Rx's Medication Instructions Recorded CPAP auto titration #1 ea 07/26/20 phentermine 37.5 mg tablet 37.5 mg PO DAILY #30 tabs 04/08/23 (Adipex-P) clotrimazole-betamethasone 1 1 applic topical BID #45 grams 06/05/23 %-0.05 % topical cream epinephrine 0.3 mg/0.3 mL See Rx Instructions .Route 08/30/23 injection, auto-injector .COMPLEX #2 ea diazepam 2 mg tablet 2 mg PO .HS PRN anxiety #30 tabs 09/25/23 ibuprofen 800 mg tablet 800 mg PO Q8H PRN pain #60 tabs 09/25/23 celecoxib 200 mg capsule (Celebrex) 200 mg PO BID #60 caps 10/08/23 cyclobenzaprine 10 mg tablet 10 mg PO TID #60 tabs 10/08/23 hydrochlorothiazide 25 mg tablet See Rx Instructions .Route 10/08/23 .COMPLEX #30 tabs ondansetron HCl 4 mg tablet 4 mg PO Q8H PRN nausea and 10/08/23 vomiting #7 tabs rosuvastatin 10 mg tablet See Rx Instructions .Route 10/08/23 .COMPLEX #30 tabs triamterene 37.5 1 tab PO QAM #30 tabs 10/08/23 mg-hydrochlorothiazide 25 mg tablet diclofenac sodium 50 mg 50 mg PO BID PRN pain #14 tabs 12/01/23 tablet,delayed release Allergies Allergy/AdvReac Type Severity Reaction Status Date / Time shellfish derived Allergy Severe Stop Verified 12/01/23 11:41 Breathing Sulfa (Sulfonamide Allergy Severe Rash Verified 12/01/23 11:41 Antibiotics) swelling cephalexin [From Keflex] Allergy Intermediate Rash Verified 12/01/23 11:41 ciprofloxacin [From Cipro] Allergy Intermediate Rash Verified 12/01/23 11:41 valsartan Allergy hypotension Verified 12/01/23 11:41 metoprolol Allergy bradycardia Uncoded 12/01/23 11:41 Review of Systems Narrative: Constitutional symptoms: Negative except as documented in HPI. Skin symptoms: Negative except as documented in HPI. Eye symptoms: Negative except as documented in HPI. ENMT symptoms: Negative except as documented in HPI. Respiratory symptoms: Negative except as documented in HPI. Cardiovascular symptoms: Negative except as documented in HPI. Gastrointestinal symptoms: Negative except as documented in HPI. Genitourinary symptoms: Negative except as documented in HPI. Musculoskeletal symptoms: Negative except as documented in HPI. Neurologic symptoms: Negative except as documented in HPI. Psychiatric symptoms: Negative except as documented in HPI. Endocrine symptoms: Negative except as documented in HPI. PFSH ED PFSH: Medical History Mixed hyperlipidemia RADHA on CPAP Lung nodule < 6cm on CT History of food anaphylaxis Shell fish Body mass index (BMI) of 33.0-33.9 in adult DDD (degenerative disc disease) Essential (primary) hypertension Situational anxiety Vitamin D deficiency Surgical History History of hysterectomy History of cataract surgery Family History Other Cancer Hypertension Social History Smoking and tobacco/nicotine status: never used tobacco/nicotine Second hand smoke exposure: No Alcohol intake: current Alcohol intake frequency: holidays/special occasions only Alcohol type: wine Substance/Drug Use: never Adopted: No Caregiver/support person: No Lives independently: Yes Household members: none Housing: House Marital status: Single Current occupational status: retired Do you think of yourself as: Straight/Heterosexual Current gender identity: Female Physical Exam Narrative: EXAM NARRATIVE: General: Alert, no acute distress. Skin: warm and dry Head: Normocephalic Neck: Trachea midline Eye: Extraocular movements are intact. Ears, nose, mouth and throat: Oral mucosa moist Respiratory: Respirations are non-labored Musculoskeletal: Normal ROM Neurological: Alert and oriented, No focal neurological deficit observed. Psychiatric: Cooperative, appropriate mood & affect. Course Vital Signs: Vital signs: Vital Signs Temperature 98.1 F 12/01/23 11:35 Pulse Rate 86 12/01/23 11:35 Respiratory Rate 17 12/01/23 11:35 Blood Pressure 138/77 12/01/23 11:35 Pulse Oximetry 96 12/01/23 11:35 Oxygen Delivery Me thod Room Air 12/01/23 11:35 MDM - Back Pain/Injury Medical Decision Making Assessment and plan: Lumbar back pain ?IM Decadron in the emergency room. - Discharged home - Discussed plan with patient. Answered any questions. - Evaluation and treatment of this problem were appropriate in the emergency setting. No radiology studies performed this visit Discharge Plan Discharge Patient Disposition: Home Clinical Impression: Strain of lumbar region Condition: Stable Prescriptions: New diclofenac sodium 50 mg tablet,delayed release (DR/EC) 50 mg PO BID PRN (Reason: pain) Qty: 14 0RF No Action (DME) CPAP auto titration See Rx Instructions .ROUTE .MEDSUPPLY Qty: 1 0RF Rx Instructions: auto titration up to 14 pressure For 99 months phentermine [Adipex-P] 37.5 mg tablet 37.5 mg PO DAILY Qty: 30 0RF Rx Instructions: must administer 30 minutes before or 1-2 hours after breakfast ibuprofen 800 mg tablet 800 mg PO Q8H PRN (Reason: pain) Qty: 60 1RF diazepam 2 mg tablet 2 mg PO .HS PRN (Reason: anxiety) Qty: 30 1RF curcumin-phosphatidylcholine 500 mg capsule PO turmeric 400 mg capsule PO .3-4 times daily DEBBIE Soothe 100-100-225 mg capsule PO DAILY PRN clotrimazole-betamethasone 1-0.05 % cream 1 applic topical BID Qty: 45 0RF epinephrine 0.3 mg/0.3 mL auto-injector See Rx Instructions .ROUTE .COMPLEX Qty: 2 2RF Dose Instruction: INJECT 0.3MG (0.3ML) INTRAMUSCULARLY ONCE A SINGLE DOSE Rx Instructions: INJECT 0.3MG (0.3ML) INTRAMUSCULARLY ONCE A SINGLE DOSE celecoxib [Celebrex] 200 mg capsule 200 mg PO BID Qty: 60 2RF cyclobenzaprine 10 mg tablet 10 mg PO TID Qty: 60 2RF hydrochlorothiazide 25 mg tablet See Rx Instructions .ROUTE .COMPLEX Qty: 30 5RF Dose Instruction: TAKE ONE TABLET BY MOUTH ONCE DAILY Rx Instructions: TAKE ONE TABLET BY MOUTH ONCE DAILY ondansetron HCl 4 mg tablet 4 mg PO Q8H PRN (Reason: nausea and vomiting) Qty: 7 1RF rosuvastatin 10 mg tablet See Rx Instructions .ROUTE .COMPLEX Qty: 30 5RF Dose Instruction: TAKE ONE TABLET BY MOUTH ONCE DAILY Rx Instructions: TAKE ONE TABLET BY MOUTH ONCE DAILY triamterene-hydrochlorothiazid 37.5-25 mg tablet 1 tab PO QAM Qty: 30 5RF Vitamin B-12 50 mcg Tablet 50 mcg PO DAILY Vitamin C 500 mg Tablet 500 mg PO DAILY Vitamin D3 25 mcg (1,000 unit) Capsule 25 mcg PO DAILY Discharge Orders: Discharge ED (Routine); Ordered 12/01/23 Ordered By: Yasmin Almeida Referrals: Harry Marion MD [Primary Care Provider] - Discharge Diet: Usual diet Discharge Activity: Increase activity as tolerated Patient Instructions: Back Pain (ED) Activity Restrictions/Additional Instructions: Thank you for choosing [facility] for your healthcare needs today. Please realize this is an emergency room and that we are providing you with a medical screening exam and this may not be complete and all inclusive of all the testing and or work up that you may need to determine your ailment or severity of your illness. You have been screened and evaluated and felt safe for discharge. Health conditions do change or evolve sometimes and as such it is important that you follow up with your Primary Doctor to be re checked, 3-5 days is a general good time frame for follow up. You are always welcome to return to the ED for re assessment if your symptoms are worsening or you have new concerns Coding Level of Care Code ED Casino Operations Supervisor for Teri Wright
[2023-12-01] MEDS: dexamethasone 10 mg/mL INJ IM (12:12)
== END 2023-12-01 12:39 | disposition home or self-care (01) ==
PROVIDERS: Emergency Provider Emergency Medicine; PCP Internal Medicine
DX: S39.012A Strain of muscle, fascia and tendon of lower back, initial encounter (principal); E78.2 Mixed hyperlipidemia; I10 Essential (primary) hypertension; X58.XXXA Exposure to other specified factors, initial encounter
CPT/HCPCS: 96372; 99284; J1100

== ENCOUNTER 2023-12-26 13:36 | Outpatient (CLI) | payer MEDICARE, SELFPAY ==
--- NOTE | 2023-12-26 13:37 | MR_ITS ---
WS: [id number] MRI LUMBAR SPINE NONCONTRAST TECHNIQUE: Sagittal T1, T2 and STIR imaging. Axial T1 and T2 imaging. CLINICAL INFORMATION: LUMBAR RADICULOPATHY COMPARISON: None. FINDINGS: Mild lumbar curve. No acute compression. Disc space narrowing worse at L2-3. Slight anterolisthesis L 4-5. Incidental limbus vertebra L3 and L4. L1-L2: Mild annular bulging. Mild facet arthropathy. Spinal canal and foramina are patent. L2-L3: Mild annular bulging with mild central canal stenosis. Narrowing of the RIGHT subarticular rec ess. Mild facet arthropathy. Mild RIGHT foraminal narrowing. L3-L4: Mild disc bulge with endplate ridging. Small LEFT foraminal protrusion with mild LEFT foramina l narrowing. RIGHT foramen is patent. Mild facet arthropathy. L4-L5: Slight anterolisthesis. Mild disc bulging with mild central canal stenosis. Narrowing of the s ubarticular recess bilaterally. Moderate facet arthropathy with ligamentum flavum hypertrophy. Mild b ilateral facet synovitis. Mild RIGHT foraminal narrowing. L5-S1: Mild disc bulging with a tiny shallow central protrusion. Tiny annular fissure. Slight contact of the S1 nerve roots. Mild LEFT foraminal narrowing. Mild facet arthropathy. Visualized pelvic bony structures: Normal. Paravertebral soft tissues: Normal. Small LEFT renal cyst partially visualized. MR/MR lumbar spine wo con* [id number] IMPRESSION: 1. Mild lumbar curve. No acute compression. 2. Mild central canal stenosis L4-5 due to disc bulging with facet arthropathy and ligamentum flavum hypertrophy. Slight impingement traversing L5 nerve root s bilaterally. 3. Mild bilateral L4-5 facet synovitis likely degenerative or inflammatory. 4. Tiny shallow central protrusion at L5-S1 with small annular tear. Slight im pingement traversing S1 nerve roots. Mild LEFT foraminal narrowing. 5. Mild central canal stenosis L2-3 with mild narrowing of the RIGHT subarticu lar recess. 6. Mild LEFT L3-4 and RIGHT L4-5 foraminal narrowing.
== END 2023-12-26 13:37 | disposition home or self-care (01) ==
LOC: RAD 13:36
PROVIDERS: PCP Internal Medicine; Visit Provider Internal Medicine
DX: M54.16 Radiculopathy, lumbar region (principal); M47.896 Other spondylosis, lumbar region
CPT/HCPCS: 72148

== ENCOUNTER 2024-09-07 07:52 | Outpatient (CLI) | payer MEDICARE, SELFPAY ==
--- NOTE | 2024-09-07 08:00 | CT_ITS ---
WS: [id number] CT chest wo con [id number] HISTORY: LUNG NODULE TECHNIQUE: Axial imaging performed through the thorax. Coronal and sagittal reformats are submitted. All CT scans at [facility] use at least one of these dose optimization techniques: automated exposure control; mA and/or kV adjustment per patient size (includes targeted exams where dose is matched to clinical indication); or iterative reconstruction. CONTRAST: None DLP: 568.82 mGy.cm COMPARISON: 09/09/2023, 04/16/2022, 06/02/2018 Lungs and central airway: Well-aerated lungs. Reidentified is a tiny 4 mm nodule at the RIGHT apex which is been present since at least 06/02/2018. No increase in size. No new mass or nodule. No pneumonia. Pleura: Normal. No pleural effusion. Heart and pericardium: Normal size heart. Very dense heavy calcified plaque along the mitral annular valve plane. Moderate coronary artery calcification. Mediastinum and kaleb: No mediastinum or hilar adenopathy. Vessels: Mild atherosclerosis aorta. No aneurysm. Normal size pulmonary artery. Chest wall and lower neck: No soft tissue masses. Upper abdomen: Small hiatal hernia. Osseous structures: Mild RIGHT curvature thoracic spine. CT/CT chest wo con [id number] IMPRESSION: 1. Long-term stability 4 mm nodule at the RIGHT lung apex. No additional imagi ng follow-up necessary. 2. No pneumonia. 3. No pathologically enlarged lymph nodes. 4. Small hiatal hernia. 5. Dense calcification along the mitral annular valve plane.
== END 2024-09-07 07:53 | disposition home or self-care (01) ==
LOC: RAD 07:55
PROVIDERS: PCP Internal Medicine; Visit Provider Internal Medicine
DX: R91.1 Solitary pulmonary nodule (principal); K44.9 Diaphragmatic hernia without obstruction or gangrene
CPT/HCPCS: 71250

== ENCOUNTER → 2024-10-14 10:02 | Outpatient (BNVA) | payer MEDICARE, SELFPAY | PROVIDERS: PCP Internal Medicine; Visit Provider Podiatrist Foot & Ankle Surgery | DX: S93.492A Sprain of other ligament of left ankle, initial encounter (principal); X58.XXXA Exposure to other specified factors, initial encounter; M19.071 Primary osteoarthritis, right ankle and foot; M19.072 Primary osteoarthritis, left ankle and foot; M25.572 Pain in left ankle and joints of left foot; M79.671 Pain in right foot | CPT/HCPCS: 73610; 73630; 99204 ==